=== PATIENT | male | born 1955 | race Caucasian/White ===

== ENCOUNTER 2018-08-24 10:17 | Inpatient (IN) ==
--- NOTE | 2018-05-20 10:35 | Anesthesiology Consultation ---
Date of Service May 20, 2018 Assessment & Plan (1) Encounter for pre-operative examination: Chart Review Chart Review: Patient seen in Pre Admission Testing Patients last HgBA1C was too high. Will need an updated one that has improved before we can consider proceeding per Dr. Holman. Consults Requested medical (Dr. Storm (06/14)) Saw PCP on 06/14/18 and the note states "He is medically cleared for fusion surgery by Dr. Gay this May,." Per conversation with Dr. Holman and Dr. Ribera, they would like patient to have cardiac clearance and stress test as well as repeat HgbA1C before they will clear patient to proceed with surgery. Because patients diabetes is uncontrolle d, they would like him to be better controlled as well. Teaching & Discussion Pre-Anesthesia Teaching/Discussion Notes: Instructed NPO after midnight before surgery, except medications with 15 cc of water. Medication instructions provided according to the PAT guidelines. History Surgery Operation Date: 06/17/18 11:55 Proposed Procedures p L1-L2 Decompression and Fusion - Serge Gay DO Height/Weight Height: 5 ft 7 in Weight: 140.8 kg Allergies Allergy/AdvReac Type Severity Reaction Status Date / Time No Known Allergies Allergy Verified 05/11/18 16:10 Medications Home Medications Medication Instructions Recorded Confirmed Last Taken budesonide-formoterol [Symbicort] 2 puff INHALATION Q12H PRN 05/11/18 05/11/18 Unknown diclofenac sodium 75 mg PO BID 05/11/18 05/11/18 Unknown empagliflozin [Jardiance] 25 mg PO QAM 05/11/18 05/11/18 Unknown furosemide 40 mg PO QAM 05/11/18 05/11/18 Unknown glimepiride 2 mg PO QAM 05/11/18 05/11/18 Unknown losartan 50 mg PO QAM 05/11/18 05/11/18 Unknown metformin 1,000 mg PO BID 05/11/18 05/11/18 Unknown potassium chloride 10 meq PO BID 05/11/18 05/11/18 Unknown semaglutide [Ozempic] 0.5 mg SUBCUT WK 05/20/18 05/20/18 Unknown Past Medical History Medical History Chronic back pain TO BOTH LEGS Diabetes mellitus, type 2 HTN (hypertension) 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 LEFT EYE DROOP WITH FATIGUE Morbid obesity Osteoarthritis SOB (shortness of breath) on exertion Sleep apnea CPAP Past Family History Family History Mother Family history of diabetes mellitus Past Surgical History Surgical History Fusion of spine LUMBAR History of arthroscopy LEFT KNEE History of cardiac cath 2012 NO STENTS-"DONE TO BE SURE HEART WAS OK" History of colonoscopy History of ear surgery RIGHT EAR DRUM REPAIR History of herniorrhaphy Umbilical Past Anesthesia History No Hx of Anesthesia Complications and No Family Hx of Anesthesia Complications History of PONV No Motion Sickness Screening History of Motion Sickness: No Social History Smoking Status: Former smoker tobacco type: cigarettes and cigars Smoking End Date: QUIT 30 YRS AGO Hx Alcohol Use: Yes Alcohol type: beer alcohol intake frequency: holidays/special occasions only Hx Substance Use: No Exercise / Class Metabolic Activity III < 4 Walking/Shop/Light housework (Limited due to back pain and REID. Able to slowly climb FOS. Denies CP.) Review of Systems Patient denies chest pain, reflux, cough, wheezing (only when sick), palpitations. +SOB/REID +Joint Pain (Back, Knees) Physical Exam Vital Signs BP: 130/74 P: 83 R: 18 T: 98.6 SPO2: 96% on RA ENMT Mouth: + dentures (upper) Thyromental Distance: > or= 3.5 Finger Breadths (4) Mallampati Class: II Neck + short neck and + thick neck; neck extension not limited Respiratory normal respiratory effort Auscultation: lungs clear to auscultation bilaterally Cardiovascular Rate/Rhythm: regular rate and regular rhythm Heart Sounds: no murmur Vessels: no carotid bruit Psychiatric Orientation: alert and oriented x 3 Testing Chest X-Ray Date: 05/20/18 Findings: + NAD FINDINGS: The heart is borderline enlarged. There is no failure. There is no lobar consolidation. There are no pleural effusions. Degenerative changes are present within the spine. There is bridging calcification of the anterior moshe gitudinal ligament. IMPRESSION: No active disease in the chest. Cardiac Catheterization Date: 08/19/12 Findings: + normal Intervention: + none The coronary arteries are angiographically normal. EF 60%. Left ventricular filling pressure is moderately elevated. Right heart pressures are mildly elevated. Mild pulmonary edema. Mild pulmonary hypertension is present. No significant valvular disease. Search for a non-cardiac source of shortness of breath. Laboratory Results 05/20/18 11:02 05/20/18 11:02 Blood Type B Positive 05/20/18 11:02 Antibody Screen NEGATIVE 05/20/18 11:02 PT 9.6 Seconds (9.0-12.0) 05/20/18 11:02 INR 0.9 (0.9-1.1) 05/20/18 11:02 APTT 25.5 Seconds (21.0-31.0) 05/20/18 11:02 Urine Color Yellow 05/20/18 11:02 Urine Appearance Clear (Clear) 05/20/18 11:02 Urine pH 7.0 (4.5-7.5) 05/20/18 11:02 Ur Specific [place] 1.038 (1.000-1.030) H 05/20/18 11:02 Urine Protein Negative (Negative) 05/20/18 11:02 Urine Glucose (UA) 3+ (Negative) H 05/20/18 11:02 Urine Ketones Negative (Negative) 05/20/18 11:02 Urine Nitrite Negative (Negative) 05/20/18 11:02 Ur Leukocyte Esterase Negative (Negative) 05/20/18 11:02 HgBA1C 11/23/17 - 9.5%
--- NOTE | 2018-05-20 10:58 | PAT Medication Instructions ---
Medication Instructions Date of Service May 20, 2018 Home Medications budesonide-formoterol [Symbicort] 2 puff INHALATION Q12H PRN diclofenac sodium 75 mg PO BID empagliflozin [Jardiance] 25 mg PO QAM furosemide 40 mg PO QAM glimepiride 2 mg PO QAM losartan 50 mg PO QAM metformin 1,000 mg PO BID potassium chloride 10 meq PO BID semaglutide [Ozempic] 0.5 mg SUBCUT WK Continue as directed semaglutide [Ozempic] 0.5 mg SUBCUT WK ASK your surgeon for instructions diclofenac sodium 75 mg PO BID DO NOT take the morning of surgery empagliflozin [Jardiance] 25 mg PO QAM furosemide 40 mg PO QAM glimepiride 2 mg PO QAM losartan 50 mg PO QAM metformin 1,000 mg PO BID potassium chloride 10 meq PO BID Take morning of surgery NOTHING TO EAT OR DRINK AFTER MIDNIGHT: budesonide-formoterol [Symbicort] 2 puff INHALATION Q12H NEEDED Take evening before surgery budesonide-formoterol [Symbicort] 2 puff INHALATION Q12H NEEDED metformin 1,000 mg PO BID potassium chloride 10 meq PO BID Other Notes If you have any questions please call us at [phone] or [phone] or [phone] or [phone]
--- NOTE | 2018-05-20 11:28 | XRay Report ---
XR chest Pre-admission PA/Lat CLINICAL HISTORY: Preoperative chest COMPARISON STUDY: No previous studies for comparison. FINDINGS: The heart is borderline enlarged. There is no failure. There is no lobar consolidation. The re are no pleural effusions. Degenerative changes are present within the spine. There is bridging perri cification of the anterior longitudinal ligament.[ IMPRESSION: No active disease in the chest. Electronically signed by: Jaswinder Richard M.D. 05/20/2018 11:27 AM
[2018-05-20 12:01] LABS: Appearance Urine Clear (Clear); Bilirubin Urine Negative (Negative); Blood Urine Negative (Negative); Color Urine Yellow; Glucose Urine UA 3+ (Negative); Ketones Urine Negative (Negative); Leukocyte Esterase Urine Negative (Negative); Nitrite Urine Negative (Negative); Protein Urine Negative (Negative); Specific Gravity Urine 1.038 (1.000-1.030); Urobilinogen Urine Negative (Negative)
[2018-05-20 12:11] LABS: INR 0.9 (0.9-1.1); Partial Thromboplastin Time 25.5 Seconds (21.0-31.0); Prothrombin Time 9.6 Seconds (9.0-12.0)
[2018-05-20 12:18] LABS: BUN Creatinine Ratio 18.5 (10-20); Creatinine Clr Calc Pharmacy 98.1 ml/min; Est GFR (African American) 86.8; Est GFR (Non-African American) 74.8; Potassium 3.9 mmol/L (3.5-5.1)
[2018-05-20 13:22] LABS: Hematocrit (blood only) 48.9 % (42-52); Hemoglobin 16.6 g/dL (14.0-18.0); Mean Corpuscular Hgb Conc 33.9 g/dL (32-36); Mean Corpuscular Volume 89.7 fL (80-100); RDW Coefficient of Variation 12.9 % (11.5-14.5); RDW Standard Deviation 41.9 fL (36.4-46.3); Red Blood Count 5.45 M/uL (4.7-6.1)
[2018-05-20 13:23] LABS: Basophils # (auto) 0.08 K/uL (0-0.2); Basophils % (auto) 0.9 %; Eosinophils # (auto) 0.27 K/uL (0-0.5); Eosinophils % (auto) 2.9 %; Immature Granulocytes # (auto) 0.05 K/uL (0.00-0.02); Immature Granulocytes % (auto) 0.5 %; Lymphocytes # (auto) 2.54 K/uL (1.2-3.4); Lymphocytes % (auto) 27.3 %; Monocytes # (auto) 0.56 K/uL (0.11-0.59); Neutrophils % (auto) 62.4 %; RBC Morphology Unremarkable
--- NOTE | 2018-08-22 09:22 | Anesthesiology Consultation ---
Date of Service August 22, 2018 Assessment & Plan Chart Review Chart Review: Acceptable Risk for Surgery and Patient NOT seen in Pre Admission Testing Consults Requested none ASA ASA3 Proposed Anesthesia Anesthesia Type: General Risk / Benefits Reviewed With: PT / POA / Parent / Guardian, Accepts Plan and Informed Consent Obtained NPO Date Last Intake of Fluids: 08/23/18 Time Last Intake of Fluids: 21:00 Date Last Intake of Solids: 08/23/18 Time Last Intake of Solids: 21:00 History Surgery Operation Date: 06/17/18 11:55 Proposed Procedures p L1-L2 Decompression and Fusion - Serge Gay DO Operation Date: 08/24/18 12:25 Proposed Procedures p L1-L2 Decomrpession and Fusion - Serge Gay DO Height/Weight Height: 1.7 m Weight: 136.078 kg Allergies Allergy/AdvReac Type Severity Reaction Status Date / Time No Known Allergies Allergy Verified 08/24/18 10:40 Medications Home Medications Medication Instructions Recorded Confirmed Last Taken empagliflozin [Jardiance] 25 mg PO QAM 05/11/18 08/24/18 08/21/18 08:00 furosemide 40 mg PO QAM 05/11/18 08/24/18 08/21/18 08:00 glimepiride 2 mg PO QAM 05/11/18 08/24/18 08/21/18 08:00 losartan 50 mg PO QAM 05/11/18 08/24/18 08/21/18 08:00 metformin 1,000 mg PO BID 05/11/18 08/24/18 08/21/18 19:00 potassium chloride 10 meq PO BID 05/11/18 08/24/18 08/21/18 19:00 semaglutide [Ozempic] 0.5 mg SUBCUT WK 05/20/18 08/24/18 08/16/18 Active Medications Generic Name Dose Route Start Last Admin Trade Name Freq PRN Reason Stop Dose Admin Acetaminophen 1,000 mg 08/24/18 06:00 08/24/18 11:00 Tylenol PO 08/24/18 18:00 1,000 mg PREOP DIANE Administration Celecoxib 200 mg 08/24/18 06:00 08/24/18 11:01 Celebrex PO 08/24/18 18:00 200 mg PREOP DIANE Administration Gabapentin 600 mg 08/24/18 06:00 08/24/18 11:00 Neurontin PO 08/24/18 18:00 600 mg PREOP DIANE Administration Lactated Ringer's 1,000 mls @ 15 mls/hr 08/24/18 06:00 08/24/18 11:01 Lr IV 08/25/18 05:59 15 mls/hr .Q24H DIANE Administration Past Medical History Medical History Chronic back pain TO BOTH LEGS Diabetes mellitus, type 2 HTN (hypertension) 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 LEFT EYE DROOP WITH FATIGUE Morbid obesity Osteoarthritis SOB (shortness of breath) on exertion Sleep apnea CPAP Denies having any CP, SOB, GERD symptoms, n/v Past Family History Family History Mother Family history of diabetes mellitus Past Surgical History Surgical History History of cardiac cath 07/18/18 AT [facility] NO STENTS. Fusion of spine LUMBAR History of arthroscopy LEFT KNEE History of cardiac cath 2012 NO STENTS-"DONE TO BE SURE HEART WAS OK" History of colonoscopy History of ear surgery RIGHT EAR DRUM REPAIR History of herniorrhaphy Umbilical Past Anesthesia History No Hx of Anesthesia Complications and No Family Hx of Anesthesia Complications History of PONV No Motion Sickness Screening History of Motion Sickness: No Social History Smoking Status: Former smoker tobacco type: cigarettes and cigars Smoking End Date: QUIT 30 YRS AGO Hx Alcohol Use: Yes Alcohol type: beer alcohol intake frequency: holidays/special occasions only Hx Substance Use: No substance use type: does not use Exercise / Class Metabolic Activity III < 4 Walking/Shop/Light housework (Limited now due to BP. Active prior to this.) Physical Exam Vital Signs Last Vital Signs Temp 36.8 C 08/24/18 11:02 Pulse 81 08/24/18 11:02 Resp 18 08/24/18 11:02 BP 158/74 H 08/24/18 11:02 Pulse Ox 95 08/24/18 11:02 ENMT Mouth: + dental restorations (Upper partial); no TMJ abnormality and no TMJ clicking Thyromental Distance: < 3.5 Finger Breadths Mallampati Class: II Mouth / Teeth: 1. Missing Neck + short neck and + thick neck; neck extension not limited Cardiovascular Rate/Rhythm: regular rate and regular rhythm Musculoskeletal Spine: normal cervical ROM and no pain with cervical ROM Psychiatric Orientation: alert and oriented x 3 Testing Electrocardiogram Date: 06/17/18 Findings: + NSR @ (90 BPM), + MD (anterior infarct) and + pertinent finding (doublet PVC) Chest X-Ray Date: 05/20/18 Findings: + NAD FINDINGS: The heart is borderline enlarged. There is no failure. There is no lobar consolidation. There are no pleural effusions. Degenerative changes are present within the spine. There is bridging calcification of the anterior longitudinal ligament. IMPRESSION: No active disease in the chest. Stress Test Date: 06/20/18 Type: nuclear (Lexiscan) Findings: + WNL Resting EF: 55% Resting LV Function: normal Cardiac Catheterization Date: 07/18/18 Laboratory Results 08/24/18 10:49 05/20/18 11:02 Blood Type B Positive 05/20/18 11:02 Antibody Screen NEGATIVE 05/20/18 11:02 PT 9.6 Seconds (9.0-12.0) 05/20/18 11:02 INR 0.9 (0.9-1.1) 05/20/18 11:02 APTT 25.5 Seconds (21.0-31.0) 05/20/18 11:02 Urine Color Yellow 05/20/18 11:02 Urine Appearance Clear (Clear) 05/20/18 11:02 Urine pH 7.0 (4.5-7.5) 05/20/18 11:02 Ur Specific [place] 1.038 (1.000-1.030) H 05/20/18 11:02 Urine Protein Negative (Negative) 05/20/18 11:02 Urine Glucose (UA) 3+ (Negative) H 05/20/18 11:02 Urine Ketones Negative (Negative) 05/20/18 11:02 Urine Nitrite Negative (Negative) 05/20/18 11:02 Ur Leukocyte Esterase Negative (Negative) 05/20/18 11:02 08/24/18 10:41 POC Glucose 215 H
[~2018-08-24 10:17] MED LIST: ACETAMINOPHEN 500 MG TAB PO SCH; CEFAZOLIN 3000MG 65 ML IV SCH; CeleBREX 200 MG CAP PO SCH; GABAPENTIN 300 MG x 2 PO SCH; LR 15ML/HR IV SCH
[2018-08-24] MEDS ORDERED: ePHEDrine sulfate 50 MG/ML AMP IV PRN (10:34)
[2018-08-24] MEDS ORDERED: ATROPINE SULFATE 0.1 MG/ML 10ML SYR IV PRN (10:34)
[2018-08-24] MEDS ORDERED: fentaNYL citrate 100 MCG/2 ML VIAL IV PRN (10:34)
[2018-08-24] MEDS ORDERED: ONDANSETRON INJ 2 MG/ML 2 ML VIAL IV PRN ×2 (10:34→15:36)
[2018-08-24] MEDS ORDERED: PROMETHAZINE HCL 12.5 MG in SODIUM CHLORIDE 0.9% 50 ML IV PRN ×2 (10:34→15:36)
[2018-08-24] MEDS ORDERED: PHENYLEPHRINE 100MCG/ML 5ML SYR IV PRN (10:34)
[2018-08-24] MEDS ORDERED: HYDROmorphone INJ 1 MG/ML SYRINGE IV PRN (10:34)
[2018-08-24 11:01] LABS: Basophils # (auto) 0.05 K/uL (0-0.2); Basophils % (auto) 0.7 %; Eosinophils # (auto) 0.16 K/uL (0-0.5); Eosinophils % (auto) 2.3 %; Hematocrit (blood only) 46.2 % (42-52); Hemoglobin 16.2 g/dL (14.0-18.0); Immature Granulocytes % (auto) 1.4 %; Lymphocytes # (auto) 2.17 K/uL (1.2-3.4); Lymphocytes % (auto) 30.9 %; Mean Corpuscular Volume 90.4 fL (80-100); Mean Platelet Volume 10.5 fL (7.4-10.4); Monocytes # (auto) 0.46 K/uL (0.11-0.59); Monocytes % (auto) 6.5 %; Neutrophils # (auto) 4.09 K/uL (1.4-6.5); Neutrophils % (auto) 58.2 %; Platelet Count 153 K/uL (130-400); RDW Coefficient of Variation 13.1 % (11.5-14.5); Red Blood Count 5.11 M/uL (4.7-6.1); White Blood Count 7.03 K/uL (4.8-10.8)
[2018-08-24 11:15] LABS: Mean Corpuscular Hgb Conc 35.1 g/dL (32-36)
--- NOTE | 2018-08-24 11:56 | History & Physical Bridge Note ---
Date of Service August 24, 2018 History & Physical Bridge Note I have examined the patient, reviewed the History & Physical and in the interval since the performance of the History & Physical I have noted the following changes of clinical significance: no changes noted
--- NOTE | 2018-08-24 11:59 | History & Physical Report ---
Date of Service August 24, 2018 Assessment & Plan (1) Spinal stenosis, lumbar region with neurogenic claudication: Decompression and fusion L1 2 Present on Admission?: Yes History of Present Illness Chief Complaint: Back and leg pain Primary Care Provider: Regan Storm Chronic persistent back and leg pain after failing extensive course of nonoperative care is here for surgical intervention. Allergies Allergy/AdvReac Type Severity Reaction Status Date / Time No Known Allergies Allergy Verified 08/24/18 10:40 Home Medications Home Medications Medication Instructions Recorded Confirmed Type empagliflozin [Jardiance] 25 mg PO QAM 05/11/18 08/24/18 History furosemide 40 mg PO QAM 05/11/18 08/24/18 History glimepiride 2 mg PO QAM 05/11/18 08/24/18 History losartan 50 mg PO QAM 05/11/18 08/24/18 History metformin 1,000 mg PO BID 05/11/18 08/24/18 History potassium chloride 10 meq PO BID 05/11/18 08/24/18 History semaglutide [Ozempic] 0.5 mg SUBCUT WK 05/20/18 08/24/18 History Past Med/Surg History Medical History Chronic back pain TO BOTH LEGS Diabetes mellitus, type 2 HTN (hypertension) 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 LEFT EYE DROOP WITH FATIGUE Morbid obesity Osteoarthritis SOB (shortness of breath) on exertion Sleep apnea CPAP Surgical History History of cardiac cath 07/18/18 AT [facility] NO STENTS. Fusion of spine LUMBAR History of arthroscopy LEFT KNEE History of cardiac cath 2012 NO STENTS-"DONE TO BE SURE HEART WAS OK" History of colonoscopy History of ear surgery RIGHT EAR DRUM REPAIR History of herniorrhaphy Umbilical Family History Mother Family history of diabetes mellitus Social History Preferred Language: Pashto Communication Ability: Effective Shell Plater Required: No Beliefs That Will Affect Care: None Current Living Situation: Spouse Other Information That Helps Us Care for You: No Feels Safe at Home: Yes Safety Concerns: Feels Safe At This Time Smoking Status: Former smoker Hx Alcohol Use: Yes Hx Substance Use: No Physical Exam Vital Signs (Past 24 Hours): Last Vital Signs Temp 36.8 C 08/24/18 11:02 Pulse 81 08/24/18 11:02 Resp 18 08/24/18 11:02 BP 158/74 H 08/24/18 11:02 Pulse Ox 95 08/24/18 11:02 Results & Data Medications Administered Acetaminophen (Tylenol) 1,000 mg PO PREOP DIANE Stop: 08/24/18 18:00 Last Admin: 08/24/18 11:00 Dose: 1,000 mg Documented by: [id number] Celecoxib (Celebrex) 200 mg PO PREOP DIANE Stop: 08/24/18 18:00 Last Admin: 08/24/18 11:01 Dose: 200 mg Documented by: [id number] Gabapentin (Neurontin) 600 mg PO PREOP DIANE Stop: 08/24/18 18:00 Last Admin: 08/24/18 11:00 Dose: 600 mg Documented by: [id number] Lactated Ringer's (Lr) 1,000 mls @ 15 mls/hr IV .Q24H DIANE Stop: 08/25/18 05:59 Last Admin: 08/24/18 11:01 Dose: 15 mls/hr Documented by: [id number]
[2018-08-24] MEDS ORDERED: fentaNYL citrate 100 MCG/2 ML VIAL ONE ×6 (12:16→13:28)
[2018-08-24] MEDS ORDERED: MIDAZOLAM HCL 1 MG/ML 2ML VIAL ONE (12:16)
[2018-08-24] MEDS ORDERED: LIDOCAINE HCL 2% 2 ML VIAL/AMP(20MG/ML) INFIL ONE (12:17)
[2018-08-24] MEDS ORDERED: GLYCOPYRROLATE 0.2 MG/ML VIAL ONE (12:17)
[2018-08-24] MEDS ORDERED: NEOSTIGMINE METHYLSULFATE 1 MG/ML 10ML VIAL ONE (12:17)
[2018-08-24] MEDS ORDERED: ROCURONIUM BROMIDE 10 MG/ML 5 ML VIAL ONE (12:17)
[2018-08-24] MEDS ORDERED: ONDANSETRON INJ 2 MG/ML 2 ML VIAL ONE ×2 (12:17→13:35)
[2018-08-24] MEDS ORDERED: DEXAMETHASONE SOD INJ 4 MG/ML VIAL ONE (12:17)
[2018-08-24] MEDS ORDERED: PROPOFOL IV EMULSION 10 MG/ML 20 ML VIAL IV ONE ×2 (12:17→13:00)
[2018-08-24] MEDS ORDERED: METOCLOPRAMIDE HCL INJ 5 MG/ML 2 ML VIAL ONE (12:17)
[2018-08-24] MEDS ORDERED: HYDROmorphone INJ 2 MG/ML SYR/VIAL ONE (12:18)
[2018-08-24] MEDS ORDERED: BACITRACIN INJ 50,000 UNIT VIAL ONE (12:19)
[2018-08-24] MEDS ORDERED: BUPIVACAINE/EPINEPHRINE 0.5% MPF 1:200,000 30 ML VIAL ONE (12:19)
[2018-08-24] MEDS ORDERED: FLOSEAL HEMOSTATIC MATRIX 10ML TOP ONE ×2 (12:54→14:02)
--- NOTE | 2018-08-24 14:01 | Operative Report ---
Post Operative Report Pre & Post Diagnosis Operation Date: 06/17/18 11:55 <No data on this case meets the specified criteria> Operation Date: 08/24/18 12:25 Pre-Op Diagnosis: Spinal Stenosis L1-L2 Post-Op Diagnosis: Spinal Stenosis L1-L2 Procedure Operation Date: 06/17/18 11:55 <No data on this case meets the specified criteria> Operation Date: 08/24/18 12:25 Actual Procedures #1 lumbar decompression bilateral medial facetectomies foraminotomies L1-2. #2 posterior spinal fusion L1-2. #3 patient posterior instrumentation L1-2. #4 interbody fusion L1-2. #5 placement of peek cage 9 x 26 mm L1-2. #6 placement of local autograft in the posterior lateral gutters. #7 placement Feese collagen sponge bone mass graft in the posterior gutters and ostial amp in the interbody space. Surgeon Serge Gay, Usability Strategist Toyin Esqueda Estimated Blood Loss 500 Findings Consistent with Post-Op Diagnosis Specimens None Description of Procedure Patient was met with preoperatively case discussed all questions addressed. After informed consent obtained patient was taken to the operative suite unde rwent intubation and placed in a prone position the Giovani table on top of the Matthew frame. All bony prominences well-padded eyes inspected to ensure no external rupture placed upon them. Lumbar spine was then prepped and draped in normal sterile fashion. Sharp dissection with the assistance of Bovie cautery was performed down to and exposing the lamina and transverse processes of L1-2. From a caudal cephalad fashion complete laminectomy of L1 was performed including bilateral medial facetectomies and foraminotomies addressing severe stenosis. Pedicle screws in place and L1 and L2 bilaterally with assistance of fluoroscopy and appropriate size osvaldo placed. By way of a transforaminal approach on the left complete discectomy of L1-[address] coated to subcortical bleeding bone and a 9 x 26 mm peek cage filled with ostium bone graft tapped in position. Rods were then locked in final position. The transverse processes of L1 and L2 bur to subcortical bleeding bone. Infuse collagen sponge mass graft local autograft placed in the posterior gutters. 15 round drain inserted. Incision was then closed with 1 Vicryl in the fascia 2-0 Vicryl subtenons in 4-0 Monocryl for final skin closure. Steri-Strip sterile dressings placed. Patient will continue to PACU stable disc. Please note Toyin Esqueda present at the entire procedure involved in patient positioning complex portions of the surgery and final skin closure. I attest to the content of the Intraoperative Record and any orders documented therein. Any exceptions are noted below.
[2018-08-24] MEDS ORDERED: LABETALOL HCL IV 5 MG/ML 20ML IV ONE (14:04)
--- NOTE | 2018-08-24 14:13 | Fluoroscopy Report ---
LUMBAR SPINE, INTRAOPERATIVE FLUOROSCOPY HISTORY: L1-L2 decompression and fusion. FLUOROSCOPY TIME: 13 seconds. FINDINGS: Intraoperative fluoroscopy was provided for the lumbar spine. 2 fluoroscopic spot images we re obtained. Posterior decompression and fusion at L1-L2 with pedicle screws and rods. The hardware a ppears intact. IMPRESSION: Fluoroscopy provided for a L1-L2 posterior decompression and fusion. Electronically signed by: Migel Renae M.D. 08/24/2018 2:12 PM
--- NOTE | 2018-08-24 15:14 | Anesthesiology Progress Note ---
Date of Service August 24, 2018 Anesthesia Post Procedure Vital Signs Vital Signs: Temp Pulse Pulse Resp BP Pulse Ox 08/24/18 15:00 36.6 C 80 16 157/77 H 95 08/24/18 14:50 79 16 155/84 H 95 08/24/18 14:40 78 16 147/71 H 95 08/24/18 14:30 78 16 163/87 H 97 08/24/18 14:20 37.2 C 78 16 164/88 H 97 08/24/18 11:02 36.8 C 81 18 158/74 H 95 Notes Mental Status: alert / awake / arousable and participated in evaluation Patient Amnestic to Procedure: Yes Nausea / Vomiting: adequately controlled Pain: adequately controlled Airway Patency, RR, SpO2: stable & adequate BP & HR: stable & adequate Hydration State: stable & adequate Anesthetic Complications: no major complications apparent
[2018-08-24] MEDS ORDERED: ALUMINUM/MAGNESIUM SUSP 30 ML UDC PO PRN (15:36)
[2018-08-24] MEDS ORDERED: METOCLOPRAMIDE HCL INJ 5 MG/ML 2 ML VIAL IV PRN (15:36)
[2018-08-24] MEDS ORDERED: ACETAMINOPHEN 500 MG TAB PO PRN (15:36)
[2018-08-24] MEDS ORDERED: MAGNESIUM HYDROXIDE SUSP 30 ML UDC PO PRN (15:36)
[2018-08-24] MEDS ORDERED: ACETAMINOPHEN 1,000 MG/100 ML VIAL IV PRN (15:36)
[2018-08-24] MEDS ORDERED: LORazepam 0.5 MG/1 ML VIAL IV PRN (15:36)
[2018-08-24] MEDS ORDERED: FAMOTIDINE 20 MG TAB PO PRN (15:36)
[2018-08-24] MEDS ORDERED: SOD PHOSPHATE/SOD BIPHOSPHATE ENEMA 132 ML BTL PR PRN (15:36)
[2018-08-24] MEDS ORDERED: ONDANSETRON 4 MG TAB PO PRN (15:36)
[2018-08-24] MEDS ORDERED: DO NOT ADMINISTER FLU VACCINE PRN (15:36)
[2018-08-24] MEDS ORDERED: LORazepam 0.5 MG TAB PO PRN (15:36)
[2018-08-24] MEDS ORDERED: TRAMADOL HCL 50 MG TABLET PO PRN (15:36)
[2018-08-24] MEDS ORDERED: HYDROmorphone INJ 0.5 MG/0.5 ML SYR IV PRN (15:36)
[2018-08-24] MEDS ORDERED: DO NOT ADMINISTER PNEUMOCOCCAL VACCINE PRN (15:36)
[2018-08-24] MEDS ORDERED: BISACODYL 10 MG SUPP PR PRN (15:36)
[2018-08-24] MEDS ORDERED: INFLUENZA ADMINISTRATION CHARGE ONE (16:30)
[2018-08-24] MEDS ORDERED: PNEUMOCOCCAL POLYSACCHARIDES 25 MCG/0.5 ML VIAL/SYR IM ONE (16:30)
[2018-08-24] MEDS ORDERED: INFLUENZA VIRUS QUAD VACCINE 0.5 ML SYR IM ONE (16:30)
[2018-08-24] MEDS ORDERED: PNEUMOCOCCAL ADMINISTRATION CHARGE ONE (16:30)
[2018-08-24] MEDS ORDERED: GLUCOSE 10 TABS/TUBE PO PRN (16:42)
[2018-08-24] MEDS ORDERED: CARBOHYDRATES FOR HYPOGLYCEMIA PO PRN (16:42)
[2018-08-24] MEDS ORDERED: DEXTROSE 50% 50 ML SYRINGE IV PRN (16:42)
[2018-08-24] MEDS ORDERED: GLUCAGON FOR INJ 1 MG VIAL SQ PRN (16:42)
[2018-08-24] MEDS ORDERED: GLUCOSE 40% GEL 15 GM TUBE PO PRN (16:42)
[2018-08-24] MEDS ORDERED: INSULIN HUMAN NPH SC ONE ×3 (16:46→22:00)
--- NOTE | 2018-08-24 17:12 | Hospitalist Consultation ---
Date of Consultation August 24, 2018 Assessment & Plan (1) Spinal stenosis, lumbar region with neurogenic claudication: - POD#0 L1-L2 decompression fusion by Dr. Gay - activity and wound care orders as per ortho - pain control with bowel regimen - PT/OT - monitor H/H for acute blood loss anemia and transfuse blood products PRN - EBL 500 cc (2) DM type 2 (diabetes mellitus, type 2): -Unknown Hgb A1c, will check with morning labs -Hold home medications including metformin, glyburide, Jardiance, Ozempic and utilize NPH and NovoLog per protocol -Noted patient received Decadron 12 mg IV intraoperatively (3) Elevated blood pressure, situational: -BP is elevated postoperatively, likely situational -Most recent BP reading 139/80 -Patient is on losartan however reports this is for renal protection secondary to diabetes; does not carry a diagnosis of hypertension -Continue losartan, making adjustments as needed (4) DELMY on CPAP: -CPAP as per home settings (5) DVT prophylaxis: -Teds/SCDs as per spine orthopedics -Noted patient with history of postoperative DVT in the past, recommend early ambulation if possible and consideration for pharmacologic prophylaxis Thank you for this consultation. We will follow the patient with you during their hospital stay. You can [facility] a [facility] via pager @ [phone]. Supervising Physician Co-Signing Physician Notes Patient is a 62-year-old male who was seen and examined postoperatively. Patient underwent L1-L2 decompression fusion by Dr. Gay. Patient is doing well postop. Denies any chest pain, shortness of breath, dizziness. On exam patient is obese, no apparent distress, lungs are clear to auscultation, S1-S2, no murmur, abdomen is soft nontender, surgical site in dressing, was able to move all extremities. Patient was noted to have high blood sugar levels. Received Decadron intraoperatively. Will hold home regimen and start him on insulin therapy. Monitor blood glucose levels. Given history of postoperative deep vein thrombosis consider pharmacologic DVT prophylaxis as able. I personally reviewed the record. Patient is interviewed and examined at bedside. Patient's care is coordinated with Pallavi Grace COMPUTER PROGRAMMER. Please refer to the documentation above for details of patient's presentation and for discussion of other issues. History of Present Illness Reason for Consultation: Postop medical management Requesting Physician: Dr. Gay Attending Physician: Dr. Rodriguez History of Present Illness 62-year-old male who is status post decompression fusion L1-L2 by Dr. Gay today. Postoperatively, the patient reports he is doing well. He reports his pain is well controlled. He reports numbness and tingling that he had in his feet prior to his surgery has now resolved. He denies chest pain and shortness of breath. No lightheadedness or dizziness. He denies abdominal pain or nausea. He has not voided since surgery. Allergies Allergy/AdvReac Type Severity Reaction Status Date / Time No Known Allergies Allergy Verified 08/24/18 10:40 Home Medications Home Medications Medication Instructions Recorded Confirmed Type empagliflozin [Jardiance] 25 mg PO QAM 05/11/18 08/24/18 History furosemide 40 mg PO QAM 05/11/18 08/24/18 History glimepiride 2 mg PO QAM 05/11/18 08/24/18 History losartan 50 mg PO QAM 05/11/18 08/24/18 History metformin 1,000 mg PO BID 05/11/18 08/24/18 History potassium chloride 10 meq PO BID 05/11/18 08/24/18 History semaglutide [Ozempic] 0.5 mg SUBCUT WK 05/20/18 08/24/18 History Patient History Medical History DVT (deep venous thrombosis) (Chronic) Postoperative DELMY on CPAP (Chronic) DM type 2 (diabetes mellitus, type 2) (Chronic) Spinal stenosis, lumbar region with neurogenic claudication (Chronic) HTN (hypertension) (Chronic) Hx of Gabriel's palsy (Chronic) LEFT SIDE FACE 2007?-RESIDUAL LEFT EYE DROOP WITH FATIGUE Osteoarthritis (Chronic) Surgical History History of ear surgery (Chronic) S/P left knee arthroscopy (Chronic) H/O hernia repair (Chronic) Previous back surgery (Chronic) History of cardiac cath (Chronic) 2012 NO STENTS-"DONE TO BE SURE HEART WAS OK" Family History Mother Pancreatic cancer Father Heart disease [place] in his 80s Social History Preferred Language: Bulgarian Communication Ability: Effective 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 Beliefs That Will Affect Care: None Current Living Situation: Spouse Other Information That Helps Us Care for You: No Feels Safe at Home: Yes Safety Concerns: Feels Safe At This Time Smoking Status: Former smoker Hx Alcohol Use: Yes Hx Substance Use: No Review of Systems ROS per HPI, all other systems reviewed and negative Physical Exam Vital Signs (Past 24 Hours): Last Vital Signs Temp 36.7 C 08/24/18 16:20 Pulse 79 08/24/18 16:20 Resp 18 08/24/18 16:20 BP 139/80 08/24/18 16:20 Pulse Ox 97 08/24/18 16:20 Constitutional: WD/WN, vitals as above Eyes: PERRL, conjunctivae normal, anicteric sclerae ENMT: external ear and nose normal, oropharynx normal Respiratory: normal respiratory effort, lungs clear to auscultation Cardiovascular: Rate/Rhythm: regular rate and regular rhythm Vessels: normal peripheral pulses Extremities: no edema Gastrointestinal (Abdomen): Inspection/Auscultation: + abdomen distended (Obese, semifirm) and normal bowel sounds Percussion/Palpation: abdomen nontender and no hepatosplenomegaly Musculoskeletal: no cyanosis or clubbing, extremities motor strength 5/5 S/P back surgery, drain in place draining bloody drainage, pedal pushes and pulls strong bilaterally Skin: no rashes, warm and dry Neurologic: PERRL, EOMI, accommodation nl, no face palsy, no dysarthria Psychiatric: A+Ox3, euthymic affect Results & Data Laboratory Results Short CBC 08/24/18 Range/Units 10:49 WBC 7.03 (4.8-10.8) K/uL Hgb 16.2 (14.0-18.0) g/dL Hct 46.2 (42-52) % Plt Count 153 (130-400) K/uL
[2018-08-24] MEDS: KETOROLAC 30 MG/ML VIAL IV SCH ×2 (17:23→23:16)
[2018-08-24] MEDS: INSULIN ASPART 100 UNITS/ML 3 ML PEN SC SCH ×2 (18:17→21:07)
[2018-08-24] MEDS: CEFAZOLIN 2000MG 2,000 MG/15 ML SYR IV SCH (19:27)
[2018-08-24] MEDS ORDERED: POTASSIUM CHLORIDE 10 MEQ TABCR PO SCH (21:00)
[2018-08-24] MEDS: DOCUSATE SODIUM/SENNA 50/8.6MG TAB PO SCH (21:13)
[2018-08-24] MEDS ORDERED: INSULIN HUMAN NPH SC SCH (22:00)
[2018-08-24] MEDS: SODIUM CHLORIDE 0.9% 1000ML 1,000 ML IV SCH (23:15)
[2018-08-25] MEDS: SODIUM CHLORIDE 0.9% 1000ML 1,000 ML IV SCH ×2 (00:02→05:04)
[2018-08-25] MEDS: POLYETHYLENE (MIRALAX) 17 GM PACK PO SCH ×3 (05:03→18:30)
[2018-08-25] MEDS: CEFAZOLIN 2000MG 2,000 MG/15 ML SYR IV SCH (05:03)
[2018-08-25] MEDS: KETOROLAC 30 MG/ML VIAL IV SCH ×2 (05:03→12:30)
[2018-08-25 06:30] LABS: Hematocrit (blood only) 39.7 % (42-52); Hemoglobin 13.8 g/dL (14.0-18.0); Mean Corpuscular Hgb Conc 34.8 g/dL (32-36); Mean Corpuscular Volume 90.4 fL (80-100); RDW Coefficient of Variation 13.1 % (11.5-14.5); RDW Standard Deviation 43.3 fL (36.4-46.3); Red Blood Count 4.39 M/uL (4.7-6.1)
[2018-08-25 06:48] LABS: BUN Creatinine Ratio 21.4 (10-20); Calcium 7.9 mg/dl (8.5-10.1); Creatinine Clr Calc Pharmacy 116.4 ml/min; Est GFR (African American) 106.2; Est GFR (Non-African American) 91.6
[2018-08-25 06:50] LABS: Estimated Average Glucose 235 mg/dl; Hemoglobin A1C 9.8 % (4.5-5.6)
[2018-08-25 07:21] LABS: Basophils # (auto) 0.02 K/uL (0-0.2); Basophils % (auto) 0.2 %; Eosinophils # (auto) 0.01 K/uL (0-0.5); Eosinophils % (auto) 0.1 %; Immature Granulocytes % (auto) 0.8 %; Lymphocytes # (auto) 1.18 K/uL (1.2-3.4); Lymphocytes % (auto) 8.9 %; Monocytes # (auto) 0.65 K/uL (0.11-0.59); Monocytes % (auto) 4.9 %; Neutrophils # (auto) 11.24 K/uL (1.4-6.5); Neutrophils % (auto) 85.1 %
--- NOTE | 2018-08-25 07:57 | Orthopedic Progress Note ---
Date of Service August 25, 2018 Assessment & Plan (1) Spinal stenosis, lumbar region with neurogenic claudication: Initiate physical therapy today advance his bowel regimen anticipate discharge home tomorrow. Present on Admission?: Yes Subjective Back pain controlled leg symptoms markedly improved. Physical Exam Vital Signs (Past 24 Hours): Last Vital Signs Temp 36.7 C 08/25/18 07:03 Pulse 79 08/25/18 07:03 Resp 18 08/25/18 07:03 BP 128/68 08/25/18 07:03 Pulse Ox 93 08/25/18 07:03 Physical Exam: Physical exam he is good strength testing appears comfortable.
[2018-08-25] MEDS: LOSARTAN POTASSIUM 50 MG TAB PO SCH (08:28)
[2018-08-25] MEDS: INSULIN ASPART 100 UNITS/ML 3 ML PEN SC SCH ×4 (08:30→20:38)
--- NOTE | 2018-08-25 08:57 | Hospitalist Progress Note ---
Date of Service August 25, 2018 Assessment & Plan (1) Spinal stenosis, lumbar region with neurogenic claudication: POD#1 S/P L1-L2 decompression fusion by Dr. Gay had EBL 500ml - activity and wound care orders as per ortho - pain control with bowel regimen - PT/OT -incentive spirometry -monitor H&H for acute blood loss anemia, Hgb: 13.8 from 16.2 (2) DM type 2 (diabetes mellitus, type 2): Pt received Decadron 12 mg IV intraoperatively A1c: 9.8. Fasting BSG 295 this morning -continue to hold home metformin while in hospital, pt can resume ozempic out patient -resume glyburide and Jardiance -NPH and NovoLog per protocol (3) Elevated blood pressure, situational: BP was elevated postoperatively. Last night and today BPs controlled with SBPs: 120's-130's -Continue losartan, lasix (4) DELMY on CPAP: -CPAP as per home settings (5) DVT prophylaxis: -Teds/SCDs as per spine orthopedics -Noted patient with history of postoperative DVT in the past, recommend early ambulation if possible and consideration for pharmacologic prophylaxis Disposition per primary team, likely discharge tomorrow Pt was seen with Dr Morton. See addendum. Thank you for this consultation. We will follow the patient with you during their hospital stay. You [facility] a [facility] via pager @ [phone]. Supervising Physician Co-Signing Physician Notes Attending addendum The patient was seen and examined the medical floor He has been out of bed on a chair without any symptoms Started on physical therapy and been good Likely be discharged tomorrow Denies any symptoms Labs reviewed and he is hemodynamically stable Agree with assessment and plan as outlined above by Trish Morton Subjective F/U medical management DM and elevated BP Pt seen and examined in bedside chair. Reports is doing well post op and states pain controlled. Reports prior to surgery had numbness to feet which has since resolved. Eating and drinking well. Denies nausea or vomiting. Last BM yesterday prior to surgery. Urinating without difficulty. Pt states that he had discontinued all his home meds on 08/21/18 prior to surgery as he misunderstood pre-op medication directions. Denies fever/chills, LIANG, dizziness, CP, SOB, cough, sore throat, choking, abdominal pain, rashes, urinary symptoms. Physical Exam Vital Signs (Past 24 Hours): Last Vital Signs Temp 36.7 C 08/25/18 07:03 Pulse 79 08/25/18 07:03 Resp 18 08/25/18 07:03 BP 128/68 08/25/18 07:03 Pulse Ox 93 08/25/18 07:03 Physical Exam: General: no distress, obese Head: normocephalic, atraumatic Eyes: conjunctiva non-injected, anicteric ENT: normal inspection external ears, nose, mucous membranes moist Neck: supple, trachea midline, non-tender Lungs: clear, no respiratory distress, no wheezing/rhonchi/rales CV: RRR, mild pretibial edema Abd: normal BS, soft, non-tender Ext: no cyanosis, no calf tenderness, bilateral pedal pushes and pulls intact, distal pulses intact Neuro: A&O x 3, no focal deficits noted, normal affect Skin: warm, dry Results & Data Laboratory Results Short CBC 08/24/18 08/25/18 Range/Units 10:49 06:07 WBC 7.03 13.20 H (4.8-10.8) K/uL Hgb 16.2 13.8 L (14.0-18.0) g/dL Hct 46.2 39.7 L (42-52) % Plt Count 153 (130-400) K/uL BMP 08/25/18 06:07 Sodium 139 Potassium 4.0 Chloride 109 H Carbon Dioxide 23 BUN 19 H Creatinine 0.89 Glucose 295 H Calcium 7.9 L
[2018-08-25] MEDS ORDERED: FUROSEMIDE 40 MG TAB PO SCH ×3 (09:00→09:30)
[2018-08-25] MEDS ORDERED: GLIMEPIRIDE 2 MG TAB PO SCH (09:00)
[2018-08-25] MEDS: INSULIN HUMAN NPH SC SCH ×2 (09:43→20:40)
[2018-08-25] MEDS: GLIMEPIRIDE 2 MG TAB PO SCH (10:54)
[2018-08-25] MEDS: OXYCODONE HCL IR 5 MG TAB (IMMEDIATE RELEASE) PO PRN (20:31)
[2018-08-25] MEDS: DOCUSATE SODIUM/SENNA 50/8.6MG TAB PO SCH (20:35)
[2018-08-26] MEDS: POLYETHYLENE (MIRALAX) 17 GM PACK PO SCH ×3 (00:54→11:21)
[2018-08-26 06:42] LABS: Basophils # (auto) 0.03 K/uL (0-0.2); Basophils % (auto) 0.3 %; Eosinophils # (auto) 0.16 K/uL (0-0.5); Eosinophils % (auto) 1.6 %; Hematocrit (blood only) 36.7 % (42-52); Hemoglobin 12.7 g/dL (14.0-18.0); Immature Granulocytes # (auto) 0.17 K/uL (0.00-0.02); Immature Granulocytes % (auto) 1.7 %; Lymphocytes # (auto) 3.19 K/uL (1.2-3.4); Lymphocytes % (auto) 31.8 %; Mean Corpuscular Hgb Conc 34.6 g/dL (32-36); Mean Corpuscular Volume 91.8 fL (80-100); Mean Platelet Volume 11.2 fL (7.4-10.4); Monocytes # (auto) 0.69 K/uL (0.11-0.59); Monocytes % (auto) 6.9 %; Neutrophils # (auto) 5.78 K/uL (1.4-6.5); Neutrophils % (auto) 57.7 %; Platelet Count 154 K/uL (130-400); RDW Coefficient of Variation 13.7 % (11.5-14.5); RDW Standard Deviation 45.3 fL (36.4-46.3); White Blood Count 10.02 K/uL (4.8-10.8)
[2018-08-26 07:09] LABS: BUN Creatinine Ratio 29.5 (10-20); Calcium 8.1 mg/dl (8.5-10.1); Creatinine Clr Calc Pharmacy 123.4 ml/min; Est GFR (African American) 108.8; Est GFR (Non-African American) 93.8; Potassium 3.8 mmol/L (3.5-5.1)
[2018-08-26] MEDS: OXYCODONE HCL IR 5 MG TAB (IMMEDIATE RELEASE) PO PRN ×2 (07:21→11:21)
[2018-08-26] MEDS: LOSARTAN POTASSIUM 50 MG TAB PO SCH (08:10)
[2018-08-26] MEDS: GLIMEPIRIDE 2 MG TAB PO SCH (08:10)
[2018-08-26] MEDS: INSULIN ASPART 100 UNITS/ML 3 ML PEN SC SCH ×2 (08:47→12:42)
[2018-08-26] MEDS: INSULIN HUMAN NPH SC SCH (08:48)
[2018-08-26] MEDS ORDERED: FUROSEMIDE 40 MG TAB PO SCH (09:00)
--- NOTE | 2018-08-26 09:51 | Hospitalist Progress Note ---
Date of Service August 26, 2018 Assessment & Plan (1) Spinal stenosis, lumbar region with neurogenic claudication: POD#2 S/P L1-L2 decompression fusion by Dr. Gay had EBL 500ml Pain moderately controlled, pt not wanting to take much pain medication - activity and wound care orders as per ortho - pain control with bowel regimen - PT/OT -incentive spirometry -monitor H&H for acute blood loss anemia. Hgb stable at 12.7 (2) DM type 2 (diabetes mellitus, type 2): Pt received Decadron 12 mg IV intraoperatively A1c: 9.8. BSG's improved over past 24 hours at 228, 112, 144, 160 -religious educator recommendations post-discharge: most likely needs insulin, however pt refuses. Is agreeable to reduced carb intake, SMBG regularly and call his provider with BG values persistently above target. -continue to hold home metformin while in hospital, pt can resume ozempic and metformin up hospital discharge -resume glyburide and Jardiance -NPH and NovoLog per protocol (3) Elevated blood pressure, situational: BP was elevated postoperatively and then controlled with SBPs: 120's- 140's. This morning BP 168/86 prior to am BP meds -Continue losartan, lasix -monitor BP (4) DELMY on CPAP: -CPAP as per home settings (5) DVT prophylaxis: -Teds/SCDs as per spine orthopedics -Pt with hx of postoperative DVT in the past, continue ambulation Disposition per primary team, plan on discharge home today Pt to follow up with PCP and close monitoring of BSGs. Pt reports has PCP appt in 2 weeks Pt was seen with Dr Morton. See addendum. Supervising Physician Co-Signing Physician Notes Attending addendum: The patient was seen and examined in medical floor in presence of the family members He is ready to get out of the hospital He denies any symptoms today On examination Hemodynamically stable Chest-decreased breath sounds both sides without any wheezing or crackles Heart S1 and S2 regular Abdomen-distended, soft Extremities-trace edema bilateral Repeat labs noted Agree with assessment and plan as outlined above by Trish Morton Subjective F/U medical management DM and elevated BP. S/P lumbar surgery. POD #2 Pt seen and examined in bedside chair. Reports is doing well. Having some back discomfort, has not wanted to take much pain medication. No further numbness to feet reported. Denies N/V. Eating and drinking well. Urinating without difficulty. +flatus. Denies BM x 2 days. Denies fever/chills, LIANG, dizziness, CP, SOB, cough, sore throat, choking, abdominal pain, rashes, urinary symptoms. Physical Exam Vital Signs (Past 24 Hours): Last Vital Signs Temp 36.6 C 08/26/18 08:07 Pulse 69 08/26/18 08:07 Resp 20 08/26/18 08:07 BP 168/86 H 08/26/18 08:07 Pulse Ox 97 08/26/18 08:07 Physical Exam: General: no distress, obese Head: normocephalic, atraumatic Eyes: conjunctiva non-injected, anicteric ENT: normal inspection external ears, nose, mucous membranes moist Neck: supple, trachea midline, Lungs: clear, no respiratory distress, no wheezing/rhonchi/rales CV: RRR, trace pretibial edema Abd: normal BS, soft, protuberant, non-tender Ext: no cyanosis, no calf tenderness, ROM extremities intact, distal pulses intact, sensation to light touch intact Back: dressing in place without discharge, DOUG drain intact with serosanguinous drainage, Neuro: A&O x 3, no focal deficits noted, normal affect Skin: warm, dry Results & Data Laboratory Results Short CBC 08/26/18 Range/Units 06:18 WBC 10.02 (4.8-10.8) K/uL Hgb 12.7 L (14.0-18.0) g/dL Hct 36.7 L (42-52) % Plt Count 154 (130-400) K/uL [facility] 08/26/18 06:18 Sodium 143 Potassium 3.8 Chloride 112 H Carbon Dioxide 24 BUN 25 H Creatinine 0.84 Glucose 187 H Calcium 8.1 L
--- NOTE | 2018-08-26 13:26 | Discharge Summary ---
Date of Service August 26, 2018 Admission HPI Per Admitting Provider Chronic persistent back and leg pain after failing extensive course of nonoperative care is here for surgical intervention. Principal Diagnosis Lumbar spinal stenosis with neurogenic claudication Discharge Data Allergies Allergy/AdvReac Type Severity Reaction Status Date / Time No Known Allergies Allergy Verified 08/24/18 10:40 Consultations 08/24/18 15:36 Consult Case Management - Discharge Planning Routine Consult Hospitalist Routine Procedures Performed Operation Date: 06/17/18 11:55 <No data on this case meets the specified criteria> Operation Date: 08/24/18 12:25 Actual Procedures p L1-L2 Decompression and Fusion with Interbody(Not Applicable) - Serge Gay DO Ordered Studies 08/24/18 11:25 FL fluoroscopy <1hr Routine FL lumbar spine 2-3V Routine Hospital Course (1) Spinal stenosis, lumbar region with neurogenic claudication: Patient underwent lumbar decompression fusion tolerated as well as taken the orthopedic floor postoperative. Postop day #1 he was up and ambulate nicely. Leg pain improved. Progressed to postop day #2. DOUG drain decreasing probably. Subsequent discharge home. Discharge orders and instructions found in the chart for further review. Total Time Total Time Spent Total Time Spent (In Minutes): Not applicable Discharge Plan Discharge Items Patient Disposition: Home - Self-Care Reason For Visit: Spinal Stenosis Discharge Diagnosis: lumbar stenosis Discharge Goals: Decrease discomfort Activity: Per 'Additional Instructions' section Non-emergency contact: Primary Care Provider Call non-emergency contact if: you have any medication questions Follow-up/Referrals: Regan Storm M.D. [Primary Care Provider] - Diet: Regular Addtl Provider Instructions: ACTIVITY RECOMMENDATIONS: SELF CARE INSTRUCTIONS AFTER THORACIC/LUMBAR FUSIONS 1. You may walk to your tolerance. It is good exercise for your legs and back. Expect some back and intermittent leg aches and pains. 2. You may perform "counter-top" level activities (make a sandwich, steven with a project, etc.). 3. No bending or lifting of more than 10 pounds or back twisting of any nature (roll like a log when turning in bed). 4. You may ride in a car for 20-30 minutes at a time. No driving until after your first visit with your doctor. 5. Frequent changes of position and restricting sitting to 30 minutes at a time will help limit the amount of back spasms and stiffness you may experience. 6. You may discontinue the use of ambulatory aids (cane, crutches, etc.) once your strength and confidence allow. 7. You may circus train supervisor the shower and let water strike your incision when you arrive home at least once daily. Do not take a tub bath, sit in a hot tub or go into a swimming pool until after your first recheck in the office. SPECIAL CARE INSTRUCTIONS: VERY IMPORTANT TO READ AND REVIEW A. Your surgical incision has been closed with a cosmetic suture under the skin that will dissolve in about 6 weeks. In 14 days, you can use a pair of clean scissors and cut the suture that is left outside of the skin at the ends of your incision. 1. The small skin tapes can be removed 7 days after surgery if they have not fallen off by that point. 2. You may keep the wound open to air as much as possible to promote healing after post-op day number 5 unless told otherwise by your doctor. 3. If you think the wound looks like it is becoming infected (redness or worsening drainage) and/or you are experiencing fever, chill or worsening back pain and muscle spasms, contact the office so that we may evaluate you as soon as possible. B. Complications are uncommon, but please contact us if you have any signs or symptoms of: 1. wound infection (fever higher than 102.5 degrees F, redness, separation of wound, drainage, or increasing pain from the incision) 2. blood clots in legs (pain, swelling, redness and warmth in legs) 3. urinary tract infection (fever higher than 102.5 degrees F, burning upon urination or increased frequency of urination) 4. nerve problems (inability to walk on your toes or heels, numbness, loss of bowel or bladder control) 5. any other symptoms that concern you C. Please call the office at if you have any concerns or questions about your operation or recovery. D. No smoking! Smoking drastically decreases the chance of a solid fusion. E. Do not take any anti-inflammatory medications (Indocin, Advil, Motrin, Aspirin, Naprosyn, etc.) as these may inhibit the chance of a solid fusion. Tylenol is okay to take for pain. MANAGING PAIN AFTER SPINAL SURGERY 1. Narcotic medication is intended for short-term use and will be provided for surgical pain. Surgical pain usually lasts for a period of 4-6 weeks. Narcotic medication includes Percocet, Vicodin, Darvocet, Tylenol #3 or Lortab. 2. Longer-term pain is more appropriately treated with non-narcotic medication such as Tylenol ES. 3. Muscle spasm is not appropriately treated with narcotics. Muscle relaxers such as Soma, Flexeril or Skelaxin can be used along with Tylenol ES. 4. Remember that we all live with some "aches and pains". This is not unusual or uncommon after an injury or as we get older. a. Back pain is expected and may include muscle spasms for 4 to 6 weeks after surgery. The pain should gradually improve. If the pain worsens for no apparent reason, please contact the office. b. Intermittent leg pain may also be experienced and should not be concerned about unless it worsens for no apparent reason. If so, please contact the office. 5. We will provide appropriate medication within the normal guidelines of their prescribed use. We will also be very cautious and aware of potential abuse and extended duration of patients' medication needs. a. Pain medications are for your comfort and to assist with sleep and rest so that the tissue can heal. They are not provided in order to return to normal activity and should not be used through the day. To do so or worsening pain at night can result from ongoing tissue damage and development of tolerance to the prescribed medicine. 6. Please allow 2-3 days to process refills. Prescriptions will not be mailed but must be picked up at the office. FOLLOW UP VISIT: Keep your scheduled follow-up appointment. Any questions, please call the office at . Prescriptions: New tramadol 50 mg Tablet 50 mg PO Q4H PRN (Reason: Pain, Moderate) Qty: 30 RF: 0 oxycodone 5 mg Tablet 5 mg PO Q4H PRN (Reason: Pain, Severe) Qty: 30 RF: 0 Continued losartan 50 mg Tablet 50 mg PO QAM RF: 0 potassium chloride 10 mEq Capsule, Extended Release 10 meq PO BID RF: 0 glimepiride 2 mg Tablet 2 mg PO QAM RF: 0 metformin 1,000 mg Tablet 1,000 mg PO BID RF: 0 furosemide 40 mg Tablet 40 mg PO Q2D RF: 0 Jardiance 25 mg Tablet 25 mg PO QAM RF: 0 Ozempic 0.25 mg or 0.5 mg(2 mg/1.5 mL) Pen Injector 0.5 mg subcut WK RF: 0 Stand-Alone Forms: [facility], Opioid Pain Management Discharge Orders: Discharge Order (Routine); Ordered 08/26/18 Ordered By: Serge Gay Admission Data Admit Date/Time: 08/24/18 14:09 Attending Provider: Serge Gay Admit Provider: Serge Gay Primary Care Provider: Regan Storm Other Providers: Quoc Rosenthal Manabendra Service: Surgical Services Other Interventions: Discharge Summary Assessment (RN) Last Done: 08/26/18 13:01
== END 2018-08-26 13:47 | disposition home or self-care (01) | DRG 454 ==
LOC: ASU 10:17 → 3E 14:09

== ENCOUNTER 2022-03-22 08:58 | Inpatient (IN) ==
[2022-03-22] MEDS ORDERED: ONDANSETRON INJ 2 MG/ML 2 ML VIAL IV STA (09:57)
[2022-03-22] MEDS ORDERED: HYDROmorphone INJ 1 MG/ML SYRINGE IV STA (09:57)
--- NOTE | 2022-03-22 09:57 | Emergency Department Note ---
Impression & Plan Lumbar back pain with radiculopathy affecting left lower extremity, Intractable low back pain, Abnormal finding on EKG ED Provider Note CHIEF COMPLAINT: "Back surgery with Dr. Gay tomorrow" HISTORY OF PRESENT ILLNESS: Patient is a 66-year-old male with past medical history significant for sleep apnea on CPAP, diabetes, hypertension, obesity who presents the emergency department at the recommendation of anesthesia/surgery for admission for preop medical clearance. Patient is scheduled for revision lumbar decompression and fusion with Dr. Gay tomorrow, 03/23. He was in last week to see anesthesia for medical clearance. He had an abnormal EKG, and anesthesia requested a cardiology clearance prior to surgery. Patient reports that his back pain has been escalating since December. He has been on multiple medications including tramadol, narcotics and gabapentin which are not working and he is no longer taking. He reports pain in his low back that radiates into the left leg and left groin. No bowel or bladder incontinence or saddle anesthesias. He has weakness in the leg secondary to pain. He currently rates his discomfort a 10/10. REVIEW OF SYSTEMS: Review of systems as per HPI. All other systems reviewed were negative. 10 systems reviewed. PMH: Electronic medical records are reviewed and summarized as above/below. See Problem List. SOCIAL HISTORY: Patient lives at home with his . PHYSICAL EXAM: Vital Signs: Reviewed Nurse's notes. CONSTITUTIONAL: Morbidly obese 66-year-old male who is awake and alert and sitting on the edge of the gurney. There is moderate discomfort with position changes. CARDIOVASCULAR: Regular rate and rhythm. Peripheral pulses easily palpable. RESPIRATORY: Breath sounds equal and clear to auscultation. ABDOMEN: Bowel sounds are present. Abdomen is soft, nontender and nondistended. INTEGUMENTARY: No lesions or rash, normal skin turgor. LYMPH: No lymphadenopathy. SPINE: Examination of the patient's back does not demonstrate any ecchymosis, abrasions or outward signs of trauma. No erythema, increased warmth or induration. He has a well-healed lumbar surgical scar. Patient has midline discomfort to palpation over the lumbar spine. There is no pain over the SI joint or the sciatic notch. He has increased pain with range of motion including rotation and flexion. EXTREMITIES: Leg lengths are symmetrical. Negative logroll bilaterally. Patellar reflex 1+ bilaterally. He has some diminished strength to left ankle dorsiflexion and plantarflexion, 4/5 on the left compared to 5/5 on the right. Positive bilateral straight leg raise testing. Calves are soft and nontender. Distal pulses are easily palpable. Diminished sensation light touch over the left lower extremity. EMERGENCY DEPARTMENT COURSE: The patient was seen and assessed as above. Old records were reviewed. Patient had initial anesthesia consult on 03/17, this was updated on 03/20, requesting cardiology clearance preoperatively. The patient was told to come to the ED today to be admitted so preoperative testing could be completed prior to surgical intervention tomorrow 03/23. He is reviewed with ED case management and consultation was placed with the [facility] service who and seen and cared for the patient on previous admission in 2018. Patient was discussed with Trish Frankel PA-C. Did also review the patient with Toyin Tejeda PA-C with Dr. aGy. She is aware. I ordered CBC with differential, CMP, coags, urinalysis and a COVID test, in addition to an EKG for preoperative medical clearance. He was medicated with Dilaudid 1 mg and Zofran 4 mg IV for his back discomfort. Platelets needed to be recollected due to clumping on the original CBC. Please refer to admitting team orders for further information. 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 Hx of colonoscopy S/P left knee arthroscopy Family History Mother Pancreatic cancer Father Heart disease [place] in his 80s Social History Smoking Status: Former smoker Second Hand Exposure: No; Hx Alcohol Use: No Hx Substance Use: No Preferred Language: Kinyarwanda Communication Ability: Effective Supervisor Blasting Required: No Beliefs That Will Affect Care: None marital status: Current Living Situation: Spouse Feels Safe at Home: Yes Assistive Devices: Cane, CPAP, Denture - Upper and Walker Allergies Allergies Allergy/AdvReac Type Severity Reaction Status Date / Time No Known Allergies Allergy Verified 08/24/18 10:40 Home Meds Home Medications Medication Instructions Recorded Confirmed empagliflozin 25 mg tablet 25 mg PO QAM 05/11/18 03/22/22 (Jardiance) furosemide 40 mg tablet 40 mg PO QAM 05/11/18 03/22/22 glimepiride 2 mg tablet 4 mg PO BID 05/11/18 03/22/22 metformin 1,000 mg tablet 1,000 mg PO BID 05/11/18 03/22/22 potassium chloride 10 mEq 10 meq PO BID 05/11/18 03/22/22 capsule,extended release semaglutide 0.25 mg or 0.5 mg (2 0.5 mg subcut WK 05/20/18 03/22/22 mg/1.5 mL) subcutaneous pen injector (Ozempic) diclofenac sodium 75 mg 75 mg PO BID 03/22/22 03/22/22 tablet,delayed release gabapentin 300 mg capsule 300 mg PO TID 03/22/22 03/22/22 gemfibrozil 600 mg tablet 600 mg PO BID 03/22/22 03/22/22 hydrocodone 7.5 mg-acetaminophen 1 tab PO Q6 PRN Severe Pain (Scale 03/22/22 03/22/22 325 mg tablet Score 7-10) losartan 100 mg tablet 100 mg PO DAILY 03/22/22 03/22/22 Previous Rx's Medication Instructions Recorded tramadol 50 mg tablet 50 mg PO Q4H PRN Pain, Moderate 08/26/18 #30 tabs Results & Data (ED) Vital Signs Vital Signs - 24 hr 03/22/22 09:10 03/22/22 09:00 Temperature 36.7 C Temperature Source Temporal Artery Scan Pulse Rate 97 H Pulse Rate [Apical] 95 H Respiratory Rate 22 18 Respiratory Effort / Characteristics Non-Labored Spontaneous Respiratory Depth Normal Blood Pressure 132/103 H Blood Pressure [Left Arm] 132/103 H Blood Pressure Mean 112 Blood Pressure Mean [Left Arm] 112 Blood Pressure Position Sitting Pulse Oximetry 97 96 Oxygen Delivery Method Room Air Room Air Sepsis Recent Fever Within 48 Hours No Sepsis New/Unexplained Change in Mental Status No Sepsis Action Taken by Nursing No Action Required Home Medications Current Medication List: was personally reviewed by me Laboratory Data Attestation: I reviewed the patient's lab results. Result diagrams: 03/22/22 10:30 03/22/22 10:30 Lab Results 03/22/22 03/22/22 03/22/22 Range/Units 10:15 10:30 10:30 WBC 8.69 (4.8-10.8) K/ul RBC 4.70 (4.63-6.08) M/uL Hgb 14.7 (14.0-18.0) g/dl Hct 42.3 (40.1-51.0) % MCV 90.0 (80.0-100.0) fL MCH 31.3 (25.0-34.0) pg MCHC 34.8 (32.0-36.0) g/dL RDW Std Deviation 39.3 (36.4-46.3) fL RDW Coeff of Balwinder 12.0 (11.5-14.5) % Plt Count (130-400) K/uL MPV (9.4-12.4) fL Immature Gran % (Auto) 1.2 % Neut % (Auto) 59.8 % Lymph % (Auto) 25.2 % [place] % (Auto) 6.9 % Eos % (Auto) 5.5 % Baso % (Auto) 1.4 % Neut # (Auto) 5.20 (1.4-6.5) K/uL Lymph # (Auto) 2.19 (1.2-3.4) K/uL [place] # (Auto) 0.60 (0.24-0.82) K/uL Eos # (Auto) 0.48 (0-0.50) K/uL Baso # (Auto) 0.12 (0-0.2) K/uL Immature Gran # (Auto) 0.10 H (0.00-0.02) K/uL PT 10.8 (9.0-12.0) Seconds INR 1.0 (0.9-1.1) APTT 25.6 (21.0-31.0) Seconds PTT Ratio 0.9 Sodium (136-145) mmol/L Potassium (3.5-5.1) mmol/L Chloride (98-107) mmol/L Carbon Dioxide (21-32) mmol/L Anion Gap (3-11) BUN (6-23) mg/dl Creatinine (0.6-1.4) mg/dl Est Cr Clr Drug Dosing ml/min Est GFR ( Amer) ml/min Est GFR (Non-Af Amer) ml/min BUN/Creatinine Ratio (10-20) Glucose (70-99(Fasting)) mg/dl Calcium (8.5-10.1) mg/dl Total Bilirubin (0.2-1.0) mg/dl AST (13-39) U/L ALT (7-52) U/L Alkaline Phosphatase (34-104) U/L Total Protein (6.0-8.3) gm/dl Albumin (3.4-5.0) gm/dl Globulin (2.5-4.0) gm/dl Albumin/Globulin Ratio (0.9-2) SARS-CoV-2, RNA, NAAT NEGATIVE (NEGATIVE) 03/22/22 Range/Units 10:30 WBC (4.8-10.8) K/ul RBC (4.63-6.08) M/uL Hgb (14.0-18.0) g/dl Hct (40.1-51.0) % MCV (80.0-100.0) fL MCH (25.0-34.0) pg MCHC (32.0-36.0) g/dL RDW Std Deviation (36.4-46.3) fL RDW Coeff of Balwinder (11.5-14.5) % Plt Count (130-400) K/uL MPV (9.4-12.4) fL Immature Gran % (Auto) % Neut % (Auto) % Lymph % (Auto) % [place] % (Auto) % Eos % (Auto) % Baso % (Auto) % Neut # (Auto) (1.4-6.5) K/uL Lymph # (Auto) (1.2-3.4) K/uL [place] # (Auto) (0.24-0.82) K/uL Eos # (Auto) (0-0.50) K/uL Baso # (Auto) (0-0.2) K/uL Immature Gran # (Auto) (0.00-0.02) K/uL PT (9.0-12.0) Seconds INR (0.9-1.1) APTT (21.0-31.0) Seconds PTT Ratio Sodium 143 (136-145) mmol/L Potassium 4.1 (3.5-5.1) mmol/L Chloride 103 (98-107) mmol/L Carbon Dioxide 27 (21-32) mmol/L Anion Gap 13 H (3-11) BUN 26 H (6-23) mg/dl Creatinine 1.33 (0.6-1.4) mg/dl Est Cr Clr Drug Dosing 70.2 ml/min Est GFR ( Amer) 64.1 ml/min Est GFR (Non-Af Amer) 55.3 ml/min BUN/Creatinine Ratio 19.5 (10-20) Glucose 190 H (70-99(Fasting)) mg/dl Calcium 10.0 (8.5-10.1) mg/dl Total Bilirubin 0.5 (0.2-1.0) mg/dl AST 12 L (13-39) U/L ALT 18 (7-52) U/L Alkaline Phosphatase 106 H (34-104) U/L Total Protein 8.0 (6.0-8.3) gm/dl Albumin 4.5 (3.4-5.0) gm/dl Globulin 3.5 (2.5-4.0) gm/dl Albumin/Globulin Ratio 1.3 (0.9-2) SARS-CoV-2, RNA, NAAT (NEGATIVE) Administered Medications Gabapentin (Gabapentin 300 Mg Cap) 300 mg PO TID DIANE Stop: 04/21/22 14:59 Last Admin: 03/22/22 15:51 Dose: 300 mg Documented By: BT Oxycodone HCl (Oxycodone Hcl Ir 5 Mg Tab (Immediate Release)) 5 mg PO Q4H PRN PRN Reason: Moderate Pain Stop: 04/05/22 14:13 Last Admin: 03/22/22 15:10 Dose: 5 mg Documented By: BT Discontinued Medications Hydromorphone HCl (Hydromorphone Inj 1 Mg/Ml Syringe) 1 mg IV NOW STA Stop: 03/22/22 09:58 Last Admin: 03/22/22 10:21 Dose: 1 mg Documented By: ULISES Ondansetron HCl (Ondansetron Inj 2 Mg/Ml 2 Ml Vial) 4 mg IV NOW STA Stop: 03/22/22 09:58 Last Admin: 03/22/22 10:21 Dose: 4 mg Documented By: ULISES ECG Data Attestation: I personally reviewed and interpreted this ECG as follows: Indication: + other (preop) Rate (beats per minute): 88 Rhythm: normal sinus ECG Intervals/blocks: + First degree AV block ECG [place]: + Normal ECG ST segments: + Normal ST segments Comparison ECG Date: from (02/12) Change: no significant change Discharge Plan Visit Data Chief Complaint: Back Injury/Pain Stated Complaint: SEVERE BACK PAIN ED Provider: Livan Fleming ED Midlevel Provider: María Lemons Discharge Problem: Lumbar back pain with radiculopathy affecting left lower extremity, Intractable low back pain, Abnormal finding on EKG Patient Disposition: Admitted As Inpatient Discharge Instructions Interventions: ED Discharge Assessment Last Done: 03/22/22 12:50
--- NOTE | 2022-03-22 10:29 | History & Physical Report ---
Date of Service March 22, 2022 Assessment & Plan (1) Lumbar back pain with radiculopathy affecting left lower extremity: Plan: History of 2 prior lumbar surgeries. Increasing lumbar back pain with radiation to left groin and left leg with left leg paresthesias. Hardware removal and lumbar decompression and fusion surgery planned 03/23/[address] Gay Hold home diclofenac, tramadol, hydrocodone Acetaminophen, oxycodone, Dilaudid as needed pain Bowel regimen [facility] consult. DAI Deal with Dr. Gay's office was made aware of patient by ER provider Will make n.p.o. midnight (2) Abnormal finding on EKG: Plan: Preop EKG from 02/13/2022: Sinus rhythm, rate 91, borderline criteria for anterior lateral infarct. Anesthesia had recommended cardiac clearance prior to undergoing surgery. Unfortunately this was unable to be completed in a timely manner EKG: Sinus rhythm, Q waves anterior leads Patient denies any chest pain, shortness of breath, exertional chest pain or shortness of breath. Recently sedentary secondary to back pain, prior was able to walk 100 yards without shortness of breath or chest pain Troponin pending Echo Cardiology consult for assistance in pre-op cardiac evaluation (3) DM type 2 (diabetes mellitus, type 2): Plan: A1c: 9 on 02/20/2022 Hold home glycemic agents Basal bolus insulin per protocol (4) HTN (hypertension): Plan: Patient's BP elevated in ER likely secondary to pain Monitor Patient had losartan today Will hold tomorrow's losartan in preparation for surgery, plan to resume losartan on 03/24/2022, or possibly postop depending on patient's BP (5) HLD (hyperlipidemia): Plan: Continue gemfibrozil (6) DELMY on CPAP: Plan: Continue CPAP at bedtime (7) Lower extremity edema: Plan: Chronic bilateral lower extremity edema. Patient denies known history of CHF Had Lasix today Will hold Lasix in preparation for surgery DVT Prophylaxis SCDs Full Code as per discussion with pt Follows with Dr Jose Luis Hamilton in [place] for routine care Pt was seen and care coordinated with Dr Waggoner. See addendum History of Present Illness Chief Complaint: Back pain, preop clearance Primary Care Provider: Jose Luis Busby MD Patient is 66-year-old male with PMH DM II, HTN, HLD, DELMY on CPAP, obesity, chronic LE edema, presented to ER for " preop clearance". Patient is scheduled for lumbar hardware removal and planned decompression and fusion of lumbar spine tomorrow, 03/23/[address] Gay. Patient having low back pain. Had injection in 12/2021 for lumbar back pain. Then reports increased low back pain with radiation to left groin and left leg with associated paresthesias. Has to use cane to walker to ambulate. No loss of control of bowel or bladder. Using diclofenac, tramadol, hydrocodone as needed for pain without relief. Patient states has not taken tramadol or hydrocodone for approximately 1 week as he did not feel it was helping. Patient had preop evaluation with [facility] on 03/17/2022. A1c: 9 in 01/2022. He has been watching his diet for past month and reports cut back on sugars. Preop EKG from 02/13/2022: Sinus rhythm, rate 91, borderline criteria for anterior lateral infarct. Anesthesia had recommended cardiac clearance prior to undergoing surgery. Unfortunately this was unable to be completed, and patient reports increased pain that is intolerable so came to ER. Patient has reported history of positive stress test in 2012, with reported cardiac cath with no interventions needed. Patient denies any chest pain, shortness of breath or exertional chest pain or shortness of breath. Unfortunately over the past 2 months with his lumbar back pain he has been quite sedentary. Prior to onset of severe pain he reports was able to walk 100 yards without any SOB or CP. States chronic bilateral lower extremity edema and uses Lasix. Feels edema is at baseline. Denies any known history of CHF. Patient states watching his diet and lost 50 pounds in past 3 months. Hasn't been using his CPAP as he has been sitting in recliner secondary to back pain. Denies fever/chills, diaphoresis, N/V/D/C, LIANG, dizziness, syncope, vision changes, neck pain, orthopnea, palpitations, cough, sore throat, choking, otalgia, rhinorrhea, abdominal pain, extremity weakness, rashes, urinary symptoms. Allergies Allergy/AdvReac Type Severity Reaction Status Date / Time No Known Allergies Allergy Verified 08/24/18 10:40 Home Medications Medication Instructions Recorded Confirmed Type empagliflozin 25 mg tablet 25 mg PO QAM 05/11/18 03/22/22 History (Jardiance) furosemide 40 mg tablet 40 mg PO QAM 05/11/18 03/22/22 History glimepiride 2 mg tablet 4 mg PO BID 05/11/18 03/22/22 History metformin 1,000 mg tablet 1,000 mg PO BID 05/11/18 03/22/22 History potassium chloride 10 mEq 10 meq PO BID 05/11/18 03/22/22 History capsule,extended release semaglutide 0.25 mg or 0.5 mg (2 0.5 mg subcut WK 05/20/18 03/22/22 History mg/1.5 mL) subcutaneous pen injector (Ozempic) tramadol 50 mg tablet 50 mg PO Q4H PRN Pain, Moderate 08/26/18 03/22/22 Rx #30 tabs diclofenac sodium 75 mg 75 mg PO BID 03/22/22 03/22/22 History tablet,delayed release gabapentin 300 mg capsule 300 mg PO TID 03/22/22 03/22/22 History gemfibrozil 600 mg tablet 600 mg PO BID 03/22/22 03/22/22 History hydrocodone 7.5 mg-acetaminophen 1 tab PO Q6 PRN Severe Pain (Scale 03/22/22 03/22/22 History 325 mg tablet Score 7-10) losartan 100 mg tablet 100 mg PO DAILY 03/22/22 03/22/22 History Past Med/Surg History Medical History (Updated 03/22/22 @ 12:04 by Trish Frankel PA-C) DM type 2 (diabetes mellitus, type 2) NIDDM DVT (deep venous thrombosis) Lower extremity--Postoperative HLD (hyperlipidemia) HTN (hypertension) 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 History of ear surgery History of lumbar spinal fusion 08/25/18: Glidescope 4, ETT 8.5. 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 Designer Required: No Beliefs That Will Affect Care: None marital status: Current Living Situation: Spouse Feels Safe at Home: Yes Assistive Devices: Cane, CPAP, Denture - Upper and Walker Review of Systems Review of Systems: All systems reviewed & are unremarkable except as noted in HPI & below Physical Exam Physical Exam: General: mild distress secondary to back pain, obese, pleasant male Head: normocephalic, atraumatic Eyes: conjunctiva non-injected, anicteric ENT: normal inspection external ears, nose, mucous membranes moist Neck: supple, trachea midline Lungs: clear, no respiratory distress, no wheezing/rhonchi/rales CV: RRR, no murmur, 1-2+ pretibial edema Abd: protuberant, normal BS, soft, non-tender Ext: no cyanosis, no calf tenderness; bilateral pedal pushes and pulls intact, sensation to light touch intact Neuro: A&O x 3, no focal deficits noted, normal affect Skin: warm, dry Results & Data Results & Data ([facility]) Vital Signs (Past 12 Hours) Vital Signs Temp Pulse Resp BP Pulse Ox O2 Del Method 03/22/22 09:10 36.7 C 97 H 22 132/103 H 97 Room Air Laboratory Results Short CBC 03/22/22 Range/Units 10:30 WBC 8.69 (4.8-10.8) K/ul Hgb 14.7 (14.0-18.0) g/dl Hct 42.3 (40.1-51.0) % Plt Count (130-400) K/uL BMP 03/22/22 10:30 Sodium 143 Potassium 4.1 Chloride 103 Carbon Dioxide 27 BUN 26 H Creatinine 1.33 Glucose 190 H Calcium 10.0 Liver Function 03/22/22 Range/Units 10:30 Total Bilirubin 0.5 (0.2-1.0) mg/dl AST 12 L (13-39) U/L ALT 18 (7-52) U/L Alkaline Phosphatase 106 H (34-104) U/L Albumin 4.5 (3.4-5.0) gm/dl Supervising Physician Co-Signing Physician Notes Patient with obesity, DM2, chronic low back pain now with radicular symptoms. Inability to lie down and limits mobility. Scheduled for potential lumbar surgery with Orthopedic surgery 03/23/2022. Admitted for pre-op risk stratification and Cardiology risk stratification due to abnormal ECG findings. Patient without chest pain, shortness of breath, n/v on ambulation but ambulation limited. ECG on admission without ischemic changes. Physical exam with obese individual hunched in chair due low back pain. Lungs CTAB, heart RRR, abdomen soft and nontender with present BS, LE swollen without pitting edema. Troponin, ECG, TTE, Cardiology consult. A1c, diabetic consult to pharmacy, insulin while inpatient. Hold losartan and lasix in AM prior to surgery. NPO at midnight. Discussed with Trish Frankel PA-C and agree with rest of plan as outlined in H&P above.
[2022-03-22 11:03] LABS: Partial Thromboplastin Ratio 0.9; Partial Thromboplastin Time 25.6 Seconds (21.0-31.0); Prothrombin Time 10.8 Seconds (9.0-12.0)
[2022-03-22 11:11] LABS: Albumin Globulin Ratio 1.3 (0.9-2); Albumin Level 4.5 gm/dl (3.4-5.0); BUN Creatinine Ratio 19.5 (10-20); Bilirubin,Total 0.5 mg/dl (0.2-1.0); Creatinine Clr Calc Pharmacy 70.2 ml/min; Est GFR (African American) 64.1 ml/min; Est GFR (Non-African American) 55.3 ml/min; Globulin 3.5 gm/dl (2.5-4.0); Potassium 4.1 mmol/L (3.5-5.1)
[2022-03-22 11:19] LABS: Basophils # (auto) 0.12 K/uL (0-0.2); Basophils % (auto) 1.4 %; Eosinophils # (auto) 0.48 K/uL (0-0.50); Eosinophils % (auto) 5.5 %; Hematocrit (blood only) 42.3 % (40.1-51.0); Hemoglobin 14.7 g/dl (14.0-18.0); Immature Granulocytes % (auto) 1.2 %; Lymphocytes # (auto) 2.19 K/uL (1.2-3.4); Lymphocytes % (auto) 25.2 %; Mean Corpuscular Hemoglobin 31.3 pg (25.0-34.0); Mean Corpuscular Hgb Conc 34.8 g/dL (32.0-36.0); Monocytes % (auto) 6.9 %; Neutrophils % (auto) 59.8 %; RDW Standard Deviation 39.3 fL (36.4-46.3); White Blood Count 8.69 K/ul (4.8-10.8)
[2022-03-22 12:24] LABS: Appearance Urine Clear (Clear); Bilirubin Urine Negative (Negative); Blood Urine Negative (Negative); Color Urine Orange; Glucose Urine UA 3+ (Negative); Ketones Urine Negative (Negative); Leukocyte Esterase Urine Negative (Negative); Nitrite Urine Negative (Negative); Protein Urine Negative (Negative); Specific Gravity Urine 1.012 (1.000-1.030); Urobilinogen Urine Negative (Negative)
[2022-03-22] MEDS ORDERED: GLUCAGON FOR INJ 1 MG VIAL SQ PRN (14:14)
[2022-03-22] MEDS ORDERED: MAGNESIUM HYDROXIDE SUSP 30 ML UDC PO PRN (14:14)
[2022-03-22] MEDS ORDERED: GLUCOSE 10 TAB/TUBE PO PRN (14:14)
[2022-03-22] MEDS ORDERED: DEXTROSE 50% 50 ML SYRINGE IV PRN (14:14)
[2022-03-22] MEDS ORDERED: GLUCOSE 40% GEL 15 GM TUBE PO PRN (14:14)
[2022-03-22] MEDS ORDERED: POLYETHYLENE (MIRALAX) 17 GM PACK PO PRN (14:14)
[2022-03-22] MEDS ORDERED: ACETAMINOPHEN 325 MG TAB PO PRN (14:14)
[2022-03-22] MEDS ORDERED: CARBOHYDRATES FOR HYPOGLYCEMIA PO PRN ×2 (14:14→16:56)
--- NOTE | 2022-03-22 15:01 | Cardiology Consultation ---
Date of Consultation March 22, 2022 Assessment & Plan (1) Abnormal finding on EKG: (2) Encounter for pre-operative examination: (3) HTN (hypertension): (4) DELMY on CPAP: (5) Spinal stenosis, lumbar region with neurogenic claudication: Plan Patient is a 66-year-old male presents through ER evaluation for severe unrelenting back pain with ongoing issues 1. Severe spinal stenosis with neurogenic claudication status post prior surgical intervention 2. Morbid obesity 3. Type 2 diabetes mellitus 4. Obstructive sleep apnea with prescribed CPAP, not in use 5. Coronary angiography 07/18/2018 for abnormal EKG mild to moderate luminal irregularities without obstruction. Report on V I O chart 08/19/2018 (outside information), date corrected in history 6. Abnormal EKG with poor R wave progression across the anterior leads Patient personally seen and examined. EKG abnormal but not significantly changed from 2019, performed prior to coronary angiography for further assessment. As above no obstructive disease discerned. Patient denies any anginal complaints. No history of valvular heart disease congestive heart failure or arrhythmia. Prior to back injury function capacity well above 5 METS No prior difficulties with anesthesia Plan: We will review results of echocardiogram ordered but do not anticipate findings that would delay surgery Operative risks increased secondary to underlying morbidities including morbid obesity and obstructive sleep apnea No indications for additional cardiac testing History of Present Illness Reason for Consultation: Preoperative cardiovascular evaluation, abnormal EKG Requesting Physician: Dr. Waggoner Attending Physician: Ross Waggoner MD History of Present Illness Patient is a 66-year-old male from [facility] ongoing issues include 1. Severe spinal stenosis with neurogenic claudication status post prior surgical intervention 2. Morbid obesity 3. Type 2 diabetes mellitus 4. Obstructive sleep apnea with prescribed CPAP, not in use 5. Coronary angiography 07/18/2018 for abnormal EKG mild to moderate luminal irregularities without obstruction. Report on V I O chart 08/19/2018 (outside information), date corrected in history 6. Abnormal EKG with poor R wave progression across the anterior leads Patient is referred now for preoperative evaluation for planned surgical intervention for severe back pain, neurogenic claudication. Patient notes nearly unrelenting pain since December. Has been sleeping in the chair since that time. Patient scheduled for surgical intervention on 03/23/2022 however surgery initially canceled due to abnormal EKG Patient unable to stand pain further, presented to ER for assessment and plan Patient without prior history of myocardial infarction angina or congestive heart failure. No history of valvular disease. 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 No history of arrhythmias, syncope or near syncope. No history of TIA or stroke. No history of renal hepatic disease No complications with prior surgical anesthesia No recent fevers chills sweats or unexplained infections. No bleeding difficulties melena hematochezia dysuria hematuria Has not been using CPAP due to inability to lie in bed Chronic lower extremity edema present per patient but unchanged Allergies Allergy/AdvReac Type Severity Reaction Status Date / Time No Known Allergies Allergy Verified 08/24/18 10:40 Home Medications Medication Instructions Recorded Confirmed Type empagliflozin 25 mg tablet 25 mg PO QAM 05/11/18 03/22/22 History (Jardiance) furosemide 40 mg tablet 40 mg PO QAM 05/11/18 03/22/22 History glimepiride 2 mg tablet 4 mg PO BID 05/11/18 03/22/22 History metformin 1,000 mg tablet 1,000 mg PO BID 05/11/18 03/22/22 History potassium chloride 10 mEq 10 meq PO BID 05/11/18 03/22/22 History capsule,extended release semaglutide 0.25 mg or 0.5 mg (2 0.5 mg subcut WK 05/20/18 03/22/22 History mg/1.5 mL) subcutaneous pen injector (Ozempic) tramadol 50 mg tablet 50 mg PO Q4H PRN Pain, Moderate 08/26/18 03/22/22 Rx #30 tabs diclofenac sodium 75 mg 75 mg PO BID 03/22/22 03/22/22 History tablet,delayed release gabapentin 300 mg capsule 300 mg PO TID 03/22/22 03/22/22 History gemfibrozil 600 mg tablet 600 mg PO BID 03/22/22 03/22/22 History hydrocodone 7.5 mg-acetaminophen 1 tab PO Q6 PRN Severe Pain (Scale 03/22/22 03/22/22 History 325 mg tablet Score 7-10) losartan 100 mg tablet 100 mg PO DAILY 03/22/22 03/22/22 History Patient History Medical History DM type 2 (diabetes mellitus, type 2) NIDDM DVT (deep venous thrombosis) Lower extremity--Postoperative HLD (hyperlipidemia) HTN (hypertension) 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 Hx of colonoscopy S/P left knee arthroscopy Family History Mother Pancreatic cancer Father Heart disease [place] in his 80s Social History Smoking Status: Former smoker Second Hand Exposure: No; Hx Alcohol Use: No Hx Substance Use: No Preferred Language: Albanian Communication Ability: Effective Cardboard Cutter Required: No Beliefs That Will Affect Care: None marital status: Current Living Situation: Spouse Feels Safe at Home: Yes Assistive Devices: Cane, CPAP, Denture - Upper and Walker Physical Exam Constitutional: WD/WN, vitals as above + morbidly obese Eyes: PERRL, conjunctivae normal, anicteric sclerae ENMT: external ear and nose normal, oropharynx normal Neck: trachea midline, no thyromegaly Respiratory: normal respiratory effort, lungs clear to auscultation Cardiovascular: RRR, no murmur, no edema Vessels: no JVD Extremities: + edema (1-2+) Chest (Breasts): Additional Comments: Large body habitus, barrel chest Gastrointestinal (Abdomen): normal bowel sounds, soft, nontender, no hepatosplenomegaly Musculoskeletal: Head/Neck/Chest: + head abnormal to inspection, normocephalic and head atraumatic Results & Data ([facility]) Vital Signs (Past 12 Hours) Vital Signs Temp Pulse Pulse Resp BP BP Pulse Ox 03/22/22 12:50 88 18 152/99 H 92 03/22/22 12:16 88 18 152/99 H 92 03/22/22 09:00 95 H 18 132/103 H 96 03/22/22 09:10 36.7 C 97 H 22 132/103 H 97 O2 Del Method 03/22/22 12:50 03/22/22 12:16 Room Air 03/22/22 09:00 Room Air 03/22/22 09:10 Room Air Laboratory Results Laboratory Results - last 24 hr 03/22/22 03/22/22 03/22/22 10:15 10:30 10:30 WBC 8.69 RBC 4.70 Hgb 14.7 Hct 42.3 MCV 90.0 MCH 31.3 MCHC 34.8 RDW Std Deviation 39.3 RDW Coeff of Balwinder 12.0 Plt Count MPV Immature Gran % (Auto) 1.2 Neut % (Auto) 59.8 Lymph % (Auto) 25.2 [place] % (Auto) 6.9 Eos % (Auto) 5.5 Baso % (Auto) 1.4 Neut # (Auto) 5.20 Lymph # (Auto) 2.19 [place] # (Auto) 0.60 Eos # (Auto) 0.48 Baso # (Auto) 0.12 Immature Gran # (Auto) 0.10 H Plt Count ,Citrate PT 10.8 INR 1.0 APTT 25.6 PTT Ratio 0.9 Sodium Potassium Chloride Carbon Dioxide Anion Gap BUN Creatinine Est Cr Clr Drug Dosing Est GFR ( Amer) Est GFR (Non-Af Amer) BUN/Creatinine Ratio Glucose Calcium Total Bilirubin AST ALT Alkaline Phosphatase Troponin I High Sens Total Protein Albumin Globulin Albumin/Globulin Ratio Urine Color Urine Appearance Urine pH Ur Specific [place] Urine Protein Urine Glucose (UA) Urine Ketones Urine Blood Urine Nitrite Urine Bilirubin Urine Urobilinogen Ur Leukocyte Esterase SARS-CoV-2, RNA, NAAT NEGATIVE 03/22/22 03/22/22 03/22/22 10:30 11:49 11:49 WBC RBC Hgb Hct MCV MCH MCHC RDW Std Deviation RDW Coeff of Balwinder Plt Count MPV Immature Gran % (Auto) Neut % (Auto) Lymph % (Auto) [place] % (Auto) Eos % (Auto) Baso % (Auto) Neut # (Auto) Lymph # (Auto) [place] # (Auto) Eos # (Auto) Baso # (Auto) Immature Gran # (Auto) Plt Count ,Citrate 221 PT INR APTT PTT Ratio Sodium 143 Potassium 4.1 Chloride 103 Carbon Dioxide 27 Anion Gap 13 H BUN 26 H Creatinine 1.33 Est Cr Clr Drug Dosing 70.2 Est GFR ( Amer) 64.1 Est GFR (Non-Af Amer) 55.3 BUN/Creatinine Ratio 19.5 Glucose 190 H Calcium 10.0 Total Bilirubin 0.5 AST 12 L ALT 18 Alkaline Phosphatase 106 H Troponin I High Sens 8.1 Total Protein 8.0 Albumin 4.5 Globulin 3.5 Albumin/Globulin Ratio 1.3 Urine Color Urine Appearance Urine pH Ur Specific [place] Urine Protein Urine Glucose (UA) Urine Ketones Urine Blood Urine Nitrite Urine Bilirubin Urine Urobilinogen Ur Leukocyte Esterase SARS-CoV-2, RNA, NAAT 03/22/22 12:15 WBC RBC Hgb Hct MCV MCH MCHC RDW Std Deviation RDW Coeff of Balwinder Plt Count MPV Immature Gran % (Auto) Neut % (Auto) Lymph % (Auto) [place] % (Auto) Eos % (Auto) Baso % (Auto) Neut # (Auto) Lymph # (Auto) [place] # (Auto) Eos # (Auto) Baso # (Auto) Immature Gran # (Auto) Plt Count ,Citrate PT INR APTT PTT Ratio Sodium Potassium Chloride Carbon Dioxide Anion Gap BUN Creatinine Est Cr Clr Drug Dosing Est GFR ( Amer) Est GFR (Non-Af Amer) BUN/Creatinine Ratio Glucose Calcium Total Bilirubin AST ALT Alkaline Phosphatase Troponin I High Sens Total Protein Albumin Globulin Albumin/Globulin Ratio Urine Color [place] Urine Appearance Clear Urine pH 5.0 Ur Specific [place] 1.012 Urine Protein Negative Urine Glucose (UA) 3+ H Urine Ketones Negative Urine Blood Negative Urine Nitrite Negative Urine Bilirubin Negative Urine Urobilinogen Negative Ur Leukocyte Esterase Negative SARS-CoV-2, RNA, NAAT ECG Additional Comments: EKG 03/22/2022: Sinus rhythm with 1st degree A-V block Low voltage QRS Cannot rule out Anterior infarct (cited on or before 13-FEB-2022) Abnormal ECG When compared with ECG of 13-FEB-2022 12:54, [place] interval has increase in comparison to prior study of 2019 on chart no significant change other than slight increase in NJ interval
[2022-03-22] MEDS: oxyCODONE HCL IR 5 MG TAB (IMMEDIATE RELEASE) PO PRN ×2 (15:10→19:51)
[2022-03-22] MEDS: GABAPENTIN 300 MG CAP PO SCH ×2 (15:51→19:58)
[2022-03-22] MEDS ORDERED: PHARMACY GLYCEMIC MGMT CONSULT PRN (16:56)
[2022-03-22] MEDS: INSULIN ASPART PER UNIT SC SCH ×2 (17:05→22:19)
[2022-03-22] MEDS: HYDROmorphone INJ 0.5 MG/0.5 ML SYR IV PRN ×2 (17:12→21:35)
[2022-03-22] MEDS: gemfibroziL 600 MG TAB PO SCH (19:58)
[2022-03-22] MEDS: DOCUSATE SODIUM 100 MG CAP PO SCH (19:58)
[2022-03-22] MEDS ORDERED: LANTUS PER UNIT CHARGE SQ SCH (21:00)
[2022-03-22] MEDS ORDERED: LACTATED RINGER'S 1,000 ML IV SCH (22:00)
[2022-03-23] MEDS ORDERED: HYDROmorphone INJ 0.5 MG/0.5 ML SYR IV STA (00:35)
--- NOTE | 2022-03-23 05:24 | Electrocardiogram Report ---
Test Reason : Blood Pressure : / mmHG Vent. Rate : 088 BPM Atrial Rate : 088 BPM P-R Int : 230 ms QRS Dur : 088 ms QT Int : 374 ms P-R-T Axes : 032 -03 028 degrees QTc Int : 452 ms Sinus rhythm with 1st degree A-V block Low voltage QRS Cannot rule out Anterior infarct (cited on or before 13-FEB-2022) Abnormal ECG When compared with ECG of 13-FEB-2022 12:54, ND interval has increased Confirmed by Jason Ivy ([id number]) on 03/23/2022 5:24:00 AM Referred By: REFERRED SELF Confirmed By:Jason Ivy
[2022-03-23] MEDS: HYDROmorphone INJ 0.5 MG/0.5 ML SYR IV PRN (05:57)
[2022-03-23] MEDS ORDERED: Nursing to Pharmacy Communication SCH ×2 (06:30→17:15)
[2022-03-23 07:47] LABS: Estimated Average Glucose 183 mg/dl
[2022-03-23] MEDS: INSULIN ASPART PER UNIT SC SCH ×4 (08:42→21:09)
[2022-03-23] MEDS: LANTUS PER UNIT CHARGE SQ SCH ×2 (08:43→21:09)
[2022-03-23] MEDS: GABAPENTIN 300 MG CAP PO SCH ×3 (08:43→20:01)
[2022-03-23] MEDS: gemfibroziL 600 MG TAB PO SCH ×2 (08:43→20:01)
[2022-03-23] MEDS: DOCUSATE SODIUM 100 MG CAP PO SCH (08:43)
[2022-03-23] MEDS: oxyCODONE HCL IR 5 MG TAB (IMMEDIATE RELEASE) PO PRN (08:45)
[2022-03-23 08:51] LABS: Prothrombin Time 10.7 Seconds (9.0-12.0)
[2022-03-23 09:06] LABS: BUN Creatinine Ratio 18.3 (10-20); Calcium 9.9 mg/dl (8.5-10.1); Creatinine Clr Calc Pharmacy 74.3 ml/min; Est GFR (African American) 68.4 ml/min; Magnesium 2.3 mg/dl (1.7-2.4); Phosphorus 3.7 mg/dl (2.5-4.9); Potassium 4.1 mmol/L (3.5-5.1)
[2022-03-23 10:00] LABS: Hematocrit (blood only) 42.9 % (40.1-51.0); Hemoglobin 14.8 g/dl (14.0-18.0); Mean Corpuscular Hemoglobin 30.9 pg (25.0-34.0); Mean Corpuscular Hgb Conc 34.5 g/dL (32.0-36.0); Mean Corpuscular Volume 89.6 fL (80.0-100.0); RDW Coefficient of Variation 12.1 % (11.5-14.5); RDW Standard Deviation 39.6 fL (36.4-46.3); Red Blood Count 4.79 M/uL (4.63-6.08); White Blood Count 10.01 K/ul (4.8-10.8)
[2022-03-23 10:01] LABS: Eosinophils # (auto) 0.55 K/uL (0-0.50); Eosinophils % (auto) 5.5 %; Lymphocytes # (auto) 2.61 K/uL (1.2-3.4); Lymphocytes % (auto) 26.1 %; Monocytes # (auto) 0.76 K/uL (0.24-0.82); Monocytes % (auto) 7.6 %; Neutrophils # (auto) 5.89 K/uL (1.4-6.5); Neutrophils % (auto) 58.8 %
--- NOTE | 2022-03-23 10:07 | Pharmacy Report ---
Pharmacy Glycemic Short Note 2 - Date of Service March 23, 2022 - Glycemic Short BSG Results (Last 24 hours): 03/22/22 03/22/22 03/22/22 10:30 16:19 20:34 Glucose 190 H POC Glucose 229 H 116 H 03/23/22 03/23/22 06:04 07:48 Glucose 127 H POC Glucose 178 H OUTPATIENT ANTIDIABETIC REGIMEN: * Metformin 1000 mg PO BIDM * Glimepiride 4 mg PO BIDM * Jardiance 25 mg PO AM * Ozempic 0.5 mg SC every Wednesday * HbA1c = 8.0% (03/22/22) ASSESSMENT: * 66 yo M admitted last evening secondary to preoperative clearance by cardiology prior to surgery with Dr. Gay today. History of T2DM managed without insulin at home, just orals. A1c is elevated given age and comorbidities. Currently NPO for surgery today. * BSG upon arrival to floor last evening was 229 mg/dL. Given 12 units of Novolog with meal, and BSG dropped to 116 mg/dL at bedtime. * Will loosen Novolog parameters today. * Fasting BSG still elevated at 178 mg/dL this AM. * Will increase basal scale slightly despite patient being NPO. Basal insulin does not peak and this should control BSG throughout surgery until he is able to eat postoperatively. * May need to back off basal insulin this evening pending BSGs. PLAN FOR INPATIENT GLYCEMIC CONTROL: * Hold outpatient oral diabetes medications * Basal insulin * Lantus 0-20 units SC BID * Bolus insulin * NovoLog per scale ACHS or Q6hrs while NPO * Goal Range: Low 110 mg/dL - High 140 mg/dL * Correction Factor: 25 mg/dL/unit * Nutritional / Prandial insulin per carb ratio of 1 unit per 8 grams CHO consumed
[2022-03-23] MEDS ORDERED: fentaNYL citrate 100 MCG/2 ML VIAL ONE (10:23)
[2022-03-23] MEDS ORDERED: MIDAZOLAM HCL 1 MG/ML 2ML VIAL ONE (10:24)
[2022-03-23] MEDS ORDERED: HYDROmorphone INJ 0.5 MG/0.5 ML SYR IV PRN ×2 (10:39→16:33)
--- NOTE | 2022-03-23 10:47 | Hospitalist Progress Note ---
Date of Service March 23, 2022 Assessment & Plan (1) Lumbar back pain with radiculopathy affecting left lower extremity: Plan: - History of 2 prior lumbar surgeries - Increasing lumbar back pain with radiation to left groin and left leg with left leg paresthesias. - scheduled for Hardware removal and lumbar decompression and fusion surgery planned 03/23/[address] Gay - Hold home diclofenac, tramadol, hydrocodone - Acetaminophen, oxycodone, Dilaudid as needed pain - Bowel regimen - Orthospine consult - NPO pending surgery (2) Abnormal finding on EKG: Plan: - Preop EKG from 02/13/2022: Sinus rhythm, rate 91, borderline criteria for anterior lateral infarct. - Anesthesia had recommended cardiac clearance prior to undergoing surgery - EKG: Sinus rhythm, poor R wave progression - Patient denies any chest pain, shortness of breath, exertional chest pain or shortness of breath - Recently sedentary secondary to back pain, prior was able to walk 100 yards without shortness of breath or chest pain - Troponin negative - Echo wnl - Cardiology consult for assistance in pre-op cardiac evaluation - no additional testing, can proceed to surgery per Cardiology (3) DM type 2 (diabetes mellitus, type 2): Plan: - A1c: 8% 02/2022 - Hold home glycemic agents - Basal bolus insulin per protocol (4) HTN (hypertension): Plan: - Patient's BP elevated in ER likely secondary to pain - Monitor - Patient had losartan today - hold losartan today in preparation for surgery, - plan to resume losartan on 03/24/2022 (5) HLD (hyperlipidemia): Plan: - Continue gemfibrozil (6) DELMY on CPAP: Plan: - Continue CPAP at bedtime (7) Lower extremity edema: Plan: - recent bilateral lower extremity edema from keep legs dependent - Patient denies known history of CHF - started on Lasix for LE edema as OP - hold Lasix - may not need Lasix going forward as this is likely not helping LE edema as his edema/swelling is likely from dependent legs as patient unable to lie in bed due to back pain Plan DVT Prophylaxis: SCDs Full Code Dispo: Telemetry Follows with Dr Jose Luis Hamilton in [place], [place] for routine care Ross Waggoner MD Hospital Medicine Admission and Anticipated Discharge Date Admission Date: March 22, 2022 Subjective Patient with obesity and DM admitted for lumbar surgery with ortho. Cardiology consulted for pre-op, ok to proceed for surgery without further testing. TTE wnl, EF 60%. NPO for surgery. Patient complaints of back pain that is unchanged. Denies chest pain, shortness of breath, n/v/d, abdominal pain, cough, dysuria. Review of Systems Review of Systems: All systems reviewed & are unremarkable except as noted in Subjective Physical Exam Physical Exam: General: NAD, obese, pleasant male Head: normocephalic, atraumatic Eyes: conjunctiva non-injected, anicteric ENT: normal inspection external ears, nose, mucous membranes moist Neck: supple, trachea midline Lungs: clear, no respiratory distress, no wheezing/rhonchi/rales CV: RRR, no murmur, tense edema of bilateral LEs Abd: protuberant, normal BS, soft, non-tender Ext: no cyanosis, no calf tenderness; bilateral pedal pushes and pulls intact, sensation to light touch intact Neuro: A&O x 3, no focal deficits noted, normal affect Skin: warm, dry Results & Data Results & Data ([facility]) Vital Signs (Past 12 Hours) Vital Signs Temp Pulse Pulse Resp BP Pulse Ox O2 Del Method 03/23/22 08:01 86 03/23/22 07:50 36.7 C 87 20 173/77 H 94 Room Air 03/23/22 03:30 80 03/23/22 02:53 36.7 C 88 20 155/88 H 92 Room Air 03/22/22 23:21 36.4 C L 75 20 134/78 90 Room Air Diagnostic Findings Laboratory Results WBC 10.01 K/ul (4.8-10.8) 03/23/22 07:48 RBC 4.79 M/uL (4.63-6.08) 03/23/22 07:48 Hgb 14.8 g/dl (14.0-18.0) 03/23/22 07:48 Hct 42.9 % (40.1-51.0) 03/23/22 07:48 MCV 89.6 fL (80.0-100.0) 03/23/22 07:48 MCH 30.9 pg (25.0-34.0) 03/23/22 07:48 MCHC 34.5 g/dL (32.0-36.0) 03/23/22 07:48 RDW Std Deviation 39.6 fL (36.4-46.3) 03/23/22 07:48 RDW Coeff of Balwinder 12.1 % (11.5-14.5) 03/23/22 07:48 Plt Count K/uL (130-400) 03/23/22 07:48 MPV fL (9.4-12.4) 03/23/22 07:48 Immature Gran % (Auto) 1.0 % 03/23/22 07:48 Neut % (Auto) 58.8 % 03/23/22 07:48 Lymph % (Auto) 26.1 % 03/23/22 07:48 [place] % (Auto) 7.6 % 03/23/22 07:48 Eos % (Auto) 5.5 % 03/23/22 07:48 Baso % (Auto) 1.0 % 03/23/22 07:48 Neut # (Auto) 5.89 K/uL (1.4-6.5) 03/23/22 07:48 Lymph # (Auto) 2.61 K/uL (1.2-3.4) 03/23/22 07:48 [place] # (Auto) 0.76 K/uL (0.24-0.82) 03/23/22 07:48 Eos # (Auto) 0.55 K/uL (0-0.50) H 03/23/22 07:48 Baso # (Auto) 0.10 K/uL (0-0.2) 03/23/22 07:48 Immature Gran # (Auto) 0.10 K/uL (0.00-0.02) H 03/23/22 07:48 Plt Count ,Citrate 221 K/uL (130-400) 03/22/22 11:49 PT 10.7 Seconds (9.0-12.0) 03/23/22 07:48 INR 1.0 (0.9-1.1) 03/23/22 07:48 APTT 25.6 Seconds (21.0-31.0) 03/22/22 10:30 PTT Ratio 0.9 03/22/22 10:30 Sodium 140 mmol/L (136-145) 03/23/22 07:48 Potassium 4.1 mmol/L (3.5-5.1) 03/23/22 07:48 Chloride 102 mmol/L (98-107) 03/23/22 07:48 Carbon Dioxide 27 mmol/L (21-32) 03/23/22 07:48 Anion Gap 11 (3-11) 03/23/22 07:48 BUN 23 mg/dl (6-23) 03/23/22 07:48 Creatinine 1.26 mg/dl (0.6-1.4) 03/23/22 07:48 Est Cr Clr Drug Dosing 74.3 ml/min 03/23/22 07:48 Est GFR ( Amer) 68.4 ml/min 03/23/22 07:48 Est GFR (Non-Af Amer) 59.0 ml/min 03/23/22 07:48 BUN/Creatinine Ratio 18.3 (10-20) 03/23/22 07:48 Glucose 127 mg/dl (70-99(Fasting)) H 03/23/22 07:48 POC Glucose 178 mg/dl (70-99) H 03/23/22 06:04 Estimat Average Glucose 183 mg/dl 03/22/22 10:30 Hemoglobin A1c 8.0 % (4.5-5.6) H 03/22/22 10:30 Calcium 9.9 mg/dl (8.5-10.1) 03/23/22 07:48 Phosphorus 3.7 mg/dl (2.5-4.9) 03/23/22 07:48 Magnesium 2.3 mg/dl (1.7-2.4) 03/23/22 07:48 Total Bilirubin 0.5 mg/dl (0.2-1.0) 03/22/22 10:30 AST 12 U/L (13-39) L 03/22/22 10:30 ALT 18 U/L (7-52) 03/22/22 10:30 Alkaline Phosphatase 106 U/L (34-104) H 03/22/22 10:30 Troponin I High Sens 8.1 pg/ml (0-20) 03/22/22 11:49 Total Protein 8.0 gm/dl (6.0-8.3) 03/22/22 10:30 Albumin 4.5 gm/dl (3.4-5.0) 03/22/22 10:30 Globulin 3.5 gm/dl (2.5-4.0) 03/22/22 10:30 Albumin/Globulin Ratio 1.3 (0.9-2) 03/22/22 10:30 Urine Color [place] 03/22/22 12:15 Urine Appearance Clear (Clear) 03/22/22 12:15 Urine pH 5.0 (4.5-7.5) 03/22/22 12:15 Ur Specific [place] 1.012 (1.000-1.030) 03/22/22 12:15 Urine Protein Negative (Negative) 03/22/22 12:15 Urine Glucose (UA) 3+ (Negative) H 03/22/22 12:15 Urine Ketones Negative (Negative) 03/22/22 12:15 Urine Blood Negative (Negative) 03/22/22 12:15 Urine Nitrite Negative (Negative) 03/22/22 12:15 Urine Bilirubin Negative (Negative) 03/22/22 12:15 Urine Urobilinogen Negative (Negative) 03/22/22 12:15 Ur Leukocyte Esterase Negative (Negative) 03/22/22 12:15 SARS-CoV-2, RNA, NAAT NEGATIVE (NEGATIVE) 03/22/22 10:15 Medications Administered Current Inpatient Medications Acetaminophen (Acetaminophen 325 Mg Tab) 650 mg PO Q4H PRN PRN Reason: Pain or Fever Stop: 04/21/22 14:13 Dextrose (Dextrose 50% 50 Ml Syringe) 25 - 50 ml IV UD PRN; Protocol PRN Reason: Hypoglycemia Protocol Stop: 04/21/22 14:13 Docusate Sodium (Docusate Sodium 100 Mg Cap) 100 mg PO BID DIANE Stop: 04/21/22 20:59 Last Admin: 03/23/22 08:43 Dose: 100 mg Gabapentin (Gabapentin 300 Mg Cap) 300 mg PO TID DIANE Stop: 04/21/22 14:59 Last Admin: 03/23/22 08:43 Dose: 300 mg Gemfibrozil (Gemfibrozil 600 Mg Tab) 600 mg PO BID DIANE Stop: 04/21/22 20:59 Last Admin: 03/23/22 08:43 Dose: 600 mg Glucagon (Glucagon For Inj 1 Mg Vial) 1 mg SQ UD PRN; Protocol PRN Reason: Hypoglycemia Protocol Stop: 04/21/22 14:13 Glucose (Glucose 40% Gel 15 Gm Tube) 15 - 30 gm PO UD PRN; Protocol PRN Reason: Hypoglycemia Protocol Stop: 04/21/22 14:13 Glucose (Glucose 10 Tab/Tube) 4 - 8 tab PO UD PRN; Protocol PRN Reason: Hypoglycemia Treatment Stop: 04/21/22 14:13 Hydromorphone HCl (Hydromorphone Inj 0.5 Mg/0.5 Ml Syr) 0.5 mg IV Q4 PRN PRN Reason: Severe Pain Stop: 04/05/22 14:13 Insulin Aspart (Insulin Aspart Per Unit) 0 units SC Q6 [facility]; Protocol Stop: 04/22/22 06:44 Last Admin: 03/23/22 08:42 Dose: 2 units Insulin Glargine (Lantus Per Unit Charge) 0 units SQ BID DIANE; Protocol Stop: 04/21/22 20:59 Last Admin: 03/23/22 08:43 Dose: 15 units Losartan Potassium (Losartan Potassium 50 Mg Tab) 100 mg PO DAILY DIANE Stop: 04/23/22 08:59 Magnesium Hydroxide (Magnesium Hydroxide Susp 30 Ml Udc) 30 ml PO Q12H PRN PRN Reason: Constipation Stop: 04/21/22 14:13 Miscellaneous (Carbohydrates For Hypoglycemia ) 15 - 30 gm PO UD PRN PRN Reason: Hypoglycemia Protocol Stop: 04/21/22 14:13 Miscellaneous Information (Pharmacy Glycemic Mgmt Consult) 1 each N/A UD PRN PRN Reason: Consult Stop: 04/21/22 16:55 Oxycodone HCl (Oxycodone Hcl Ir 5 Mg Tab (Immediate Release)) 5 mg PO Q4H PRN PRN Reason: Moderate Pain Stop: 04/05/22 14:13 Last Admin: 03/23/22 08:45 Dose: 5 mg Polyethylene Glycol (Polyethylene (Miralax) 17 Gm Pack) 17 gm PO DAILY PRN PRN Reason: Constipation Stop: 04/21/22 14:13
--- NOTE | 2022-03-23 11:31 | History & Physical Report ---
Date of Service March 23, 2022 Assessment & Plan (1) Spinal stenosis, lumbar region with neurogenic claudication: Plan: L2-L4 decompression fusion, L1-L2 and L4-L5 hardware removal Admission and Anticipated Discharge Date Admission Date: March 22, 2022 History of Present Illness Chief Complaint: Back and bilateral leg pain Primary Care Provider: Jose Luis Busby MD This is a 66-year-old male well-known to me the presents with chronic persistent back and right leg pain. After failing extensive course of nonoperative care is here for surgical invention. Allergies Allergy/AdvReac Type Severity Reaction Status Date / Time No Known Allergies Allergy Verified 08/24/18 10:40 Home Medications Medication Instructions Recorded Confirmed Type empagliflozin 25 mg tablet 25 mg PO QAM 05/11/18 03/22/22 History (Jardiance) furosemide 40 mg tablet 40 mg PO QAM 05/11/18 03/22/22 History glimepiride 2 mg tablet 4 mg PO BID 05/11/18 03/22/22 History metformin 1,000 mg tablet 1,000 mg PO BID 05/11/18 03/22/22 History potassium chloride 10 mEq 10 meq PO BID 05/11/18 03/22/22 History capsule,extended release semaglutide 0.25 mg or 0.5 mg (2 0.5 mg subcut WK 05/20/18 03/22/22 History mg/1.5 mL) subcutaneous pen injector (Ozempic) tramadol 50 mg tablet 50 mg PO Q4H PRN Pain, Moderate 08/26/18 03/22/22 Rx #30 tabs diclofenac sodium 75 mg 75 mg PO BID 03/22/22 03/22/22 History tablet,delayed release gabapentin 300 mg capsule 300 mg PO TID 03/22/22 03/22/22 History gemfibrozil 600 mg tablet 600 mg PO BID 03/22/22 03/22/22 History hydrocodone 7.5 mg-acetaminophen 1 tab PO Q6 PRN Severe Pain (Scale 03/22/22 03/22/22 History 325 mg tablet Score 7-10) losartan 100 mg tablet 100 mg PO DAILY 03/22/22 03/22/22 History Past Med/Surg History Medical History DM type 2 (diabetes mellitus, type 2) NIDDM DVT (deep venous thrombosis) Lower extremity--Postoperative HLD (hyperlipidemia) HTN (hypertension) 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 Required: No Beliefs That Will Affect Care: None marital status: Current Living Situation: Spouse Feels Safe at Home: Yes Assistive Devices: Cane, CPAP, Denture - Upper and Walker Physical Exam Physical Exam: Patient is alert and oriented Heart regular rhythm Lungs clear Results & Data Results & [facility]) Vital Signs (Past 12 Hours) Vital Signs Temp Pulse Pulse Pulse Resp BP Pulse Ox 03/23/22 10:50 36.7 C 99 H 20 95 03/23/22 08:01 86 03/23/22 07:50 36.7 C 87 20 173/77 H 94 03/23/22 03:30 80 03/23/22 02:53 36.7 C 88 20 155/88 H 92 O2 Del Method 03/23/22 10:50 Room Air 03/23/22 08:01 03/23/22 07:50 Room Air 03/23/22 03:30 03/23/22 02:53 Room Air Code Status & VTE Plan VTE Prophylaxis Plan VTE Prophylaxis will be ordered: Yes
--- NOTE | 2022-03-23 11:34 | Cardiology Progress Note ---
Date of Service March 23, 2022 Assessment & Plan (1) Abnormal finding on EKG: (2) Encounter for pre-operative examination: (3) HTN (hypertension): (4) DELMY on CPAP: (5) Spinal stenosis, lumbar region with neurogenic claudication: Plan Patient is a 66-year-old male presents through ER evaluation for severe unrelenting back pain with ongoing issues 1. Severe spinal stenosis with neurogenic claudication status post prior surgical intervention 2. Morbid obesity 3. Type 2 diabetes mellitus 4. Obstructive sleep apnea with prescribed CPAP, not in use 5. Coronary angiography 07/18/2018 for abnormal EKG mild to moderate luminal irregularities without obstruction. Report on [facility] chart 08/19/2018 (outside information), date corrected in history 6. Abnormal EKG with poor R wave progression across the anterior leads Patient personally seen and examined. EKG abnormal but not significantly changed from 2019, performed prior to coronary angiography for further assessment. As above no obstructive disease discerned. Patient denies any anginal complaints. No history of valvular heart disease congestive heart failure or arrhythmia. Prior to back injury function capacity well above 5 METS No prior difficulties with anesthesia Plan: Echocardiogram reviewed. Normal overall LV systolic function. No valvular disease of significance. Operative risks increased secondary to underlying morbidities including morbid obesity and obstructive sleep apnea No indications for additional cardiac testing Blood pressure elevated in the setting of pain. Antihypertensives held in preoperative setting. Admission and Anticipated Discharge Date Admission Date: March 22, 2022 Subjective Patient seen and examined. No cardiac complaints. Sitting upright due to chronic back pain. Echocardiogram reviewed this morning with no wall motion abnormalities noted. Review of Systems Review of Systems: All systems reviewed & are unremarkable except as noted in Subjective Physical Exam Constitutional: WD/WN, vitals as above + morbidly obese Eyes: PERRL, conjunctivae normal, anicteric sclerae ENMT: external ear and nose normal, oropharynx normal Neck: trachea midline, no thyromegaly Respiratory: normal respiratory effort, lungs clear to auscultation Cardiovascular: RRR, no murmur, no edema Vessels: no JVD Extremities: + edema (1-2+) Gastrointestinal (Abdomen): normal bowel sounds, soft, nontender, no hepatosplenomegaly Musculoskeletal: Head/Neck/Chest: + head abnormal to inspection, normocephalic and head atraumatic Results & Data ([facility]) Vital Signs (Past 12 Hours) Vital Signs Temp Pulse Pulse Pulse Resp BP Pulse Ox 03/23/22 10:50 36.7 C 99 H 20 95 03/23/22 08:01 86 03/23/22 07:50 36.7 C 87 20 173/77 H 94 03/23/22 03:30 80 03/23/22 02:53 36.7 C 88 20 155/88 H 92 O2 Del Method 03/23/22 10:50 Room Air 03/23/22 08:01 03/23/22 07:50 Room Air 03/23/22 03:30 03/23/22 02:53 Room Air Laboratory Results Laboratory Results - last 24 hr 03/22/22 03/22/22 03/22/22 10:30 11:49 11:49 WBC RBC Hgb Hct MCV MCH MCHC RDW Std Deviation RDW Coeff of Balwinder Plt Count MPV Immature Gran % (Auto) Neut % (Auto) Lymph % (Auto) [place] % (Auto) Eos % (Auto) Baso % (Auto) Neut # (Auto) Lymph # (Auto) [place] # (Auto) Eos # (Auto) Baso # (Auto) Immature Gran # (Auto) Plt Count ,Citrate 221 PT INR Sodium Potassium Chloride Carbon Dioxide Anion Gap BUN Creatinine Est Cr Clr Drug Dosing Est GFR ( Amer) Est GFR (Non-Af Amer) BUN/Creatinine Ratio Glucose POC Glucose Estimat Average Glucose 183 Hemoglobin A1c 8.0 H Calcium Phosphorus Magnesium Troponin I High Sens 8.1 Urine Color Urine Appearance Urine pH Ur Specific [place] Urine Protein Urine Glucose (UA) Urine Ketones Urine Blood Urine Nitrite Urine Bilirubin Urine Urobilinogen Ur Leukocyte Esterase 03/22/22 03/22/22 03/22/22 12:15 16:19 20:34 WBC RBC Hgb Hct MCV MCH MCHC RDW Std Deviation RDW Coeff of Balwinder Plt Count MPV Immature Gran % (Auto) Neut % (Auto) Lymph % (Auto) [place] % (Auto) Eos % (Auto) Baso % (Auto) Neut # (Auto) Lymph # (Auto) [place] # (Auto) Eos # (Auto) Baso # (Auto) Immature Gran # (Auto) Plt Count ,Citrate PT INR Sodium Potassium Chloride Carbon Dioxide Anion Gap BUN Creatinine Est Cr Clr Drug Dosing Est GFR ( Amer) Est GFR (Non-Af Amer) BUN/Creatinine Ratio Glucose POC Glucose 229 H 116 H Estimat Average Glucose Hemoglobin A1c Calcium Phosphorus Magnesium Troponin I High Sens Urine Color [place] Urine Appearance Clear Urine pH 5.0 Ur Specific [place] 1.012 Urine Protein Negative Urine Glucose (UA) 3+ H Urine Ketones Negative Urine Blood Negative Urine Nitrite Negative Urine Bilirubin Negative Urine Urobilinogen Negative Ur Leukocyte Esterase Negative 03/23/22 03/23/22 03/23/22 06:04 07:48 07:48 WBC 10.01 RBC 4.79 Hgb 14.8 Hct 42.9 MCV 89.6 MCH 30.9 MCHC 34.5 RDW Std Deviation 39.6 RDW Coeff of Balwinder 12.1 Plt Count MPV Immature Gran % (Auto) 1.0 Neut % (Auto) 58.8 Lymph % (Auto) 26.1 [place] % (Auto) 7.6 Eos % (Auto) 5.5 Baso % (Auto) 1.0 Neut # (Auto) 5.89 Lymph # (Auto) 2.61 [place] # (Auto) 0.76 Eos # (Auto) 0.55 H Baso # (Auto) 0.10 Immature Gran # (Auto) 0.10 H Plt Count ,Citrate PT 10.7 INR 1.0 Sodium Potassium Chloride Carbon Dioxide Anion Gap BUN Creatinine Est Cr Clr Drug Dosing Est GFR ( Amer) Est GFR (Non-Af Amer) BUN/Creatinine Ratio Glucose POC Glucose 178 H Estimat Average Glucose Hemoglobin A1c Calcium Phosphorus Magnesium Troponin I High Sens Urine Color Urine Appearance Urine pH Ur Specific [place] Urine Protein Urine Glucose (UA) Urine Ketones Urine Blood Urine Nitrite Urine Bilirubin Urine Urobilinogen Ur Leukocyte Esterase 03/23/22 03/23/22 07:48 10:55 WBC RBC Hgb Hct MCV MCH MCHC RDW Std Deviation RDW Coeff of Balwinder Plt Count MPV Immature Gran % (Auto) Neut % (Auto) Lymph % (Auto) [place] % (Auto) Eos % (Auto) Baso % (Auto) Neut # (Auto) Lymph # (Auto) [place] # (Auto) Eos # (Auto) Baso # (Auto) Immature Gran # (Auto) Plt Count ,Citrate PT INR Sodium 140 Potassium 4.1 Chloride 102 Carbon Dioxide 27 Anion Gap 11 BUN 23 Creatinine 1.26 Est Cr Clr Drug Dosing 74.3 Est GFR ( Amer) 68.4 Est GFR (Non-Af Amer) 59.0 BUN/Creatinine Ratio 18.3 Glucose 127 H POC Glucose 118 H Estimat Average Glucose Hemoglobin A1c Calcium 9.9 Phosphorus 3.7 Magnesium 2.3 Troponin I High Sens Urine Color Urine Appearance Urine pH Ur Specific [place] Urine Protein Urine Glucose (UA) Urine Ketones Urine Blood Urine Nitrite Urine Bilirubin Urine Urobilinogen Ur Leukocyte Esterase
[2022-03-23] MEDS ORDERED: BUPIVACAINE/EPINEPHRINE 0.25% 1:200,000 30 ML VIAL ONE (11:51)
[2022-03-23] MEDS ORDERED: ceFAZolin 330 MG/ML 1 GM VIAL ONE (11:52)
--- NOTE | 2022-03-23 12:00 | Anesthesiology Consultation ---
Date of Service March 23, 2022 Assessment & Plan (1) Encounter for pre-operative examination: Chart Review Chart Review: Acceptable Risk for Surgery History Surgery Operation Date: 03/23/22 09:40 Proposed Procedures p L2-L4 Decompression Fusion, L1-L2 and L4-S1 Hardware Removal - Serge Gay DO Height/Weight Height: 5 ft 7 in Weight: 128.6 kg Allergies Allergy/AdvReac Type Severity Reaction Status Date / Time No Known Allergies Allergy Verified 08/24/18 10:40 Medications Home Medications Medication Instructions Recorded Confirmed Last Taken empagliflozin 25 mg tablet 25 mg PO QAM 05/11/18 03/22/22 03/20/22 (Jardiance) furosemide 40 mg tablet 40 mg PO QAM 05/11/18 03/22/22 03/22/22 glimepiride 2 mg tablet 4 mg PO BID 05/11/18 03/22/22 03/22/22 metformin 1,000 mg tablet 1,000 mg PO BID 05/11/18 03/22/22 03/20/22 potassium chloride 10 mEq 10 meq PO BID 05/11/18 03/22/22 03/22/22 capsule,extended release semaglutide 0.25 mg or 0.5 mg (2 0.5 mg subcut WK 05/20/18 03/22/22 03/22/22 mg/1.5 mL) subcutaneous pen injector (Ozempic) tramadol 50 mg tablet 50 mg PO Q4H PRN Pain, Moderate 08/26/18 03/22/22 Unknown #30 tabs diclofenac sodium 75 mg 75 mg PO BID 03/22/22 03/22/22 03/22/22 tablet,delayed release gabapentin 300 mg capsule 300 mg PO TID 03/22/22 03/22/22 03/22/22 gemfibrozil 600 mg tablet 600 mg PO BID 03/22/22 03/22/22 03/22/22 hydrocodone 7.5 mg-acetaminophen 1 tab PO Q6 PRN Severe Pain (Scale 03/22/22 03/22/22 Unknown 325 mg tablet Score 7-10) losartan 100 mg tablet 100 mg PO DAILY 03/22/22 03/22/22 03/22/22 Active Medications Generic Name Dose Route Start Last Admin Trade Name Freq PRN Reason Stop Dose Admin Docusate Sodium 100 mg 03/22/22 21:00 03/23/22 08:43 Docusate Sodium 100 Mg Cap PO 04/21/22 20:59 100 mg BID DIANE Administration Gabapentin 300 mg 03/22/22 15:00 03/23/22 08:43 Gabapentin 300 Mg Cap PO 04/21/22 14:59 300 mg TID DIANE Administration Gemfibrozil 600 mg 03/22/22 21:00 03/23/22 08:43 Gemfibrozil 600 Mg Tab PO 04/21/22 20:59 600 mg BID DIANE Administration Insulin Aspart 0 units 03/23/22 06:45 03/23/22 08:42 Insulin Aspart Per Unit SC 04/22/22 06:44 2 units Q6 DIANE Administration Protocol Insulin Glargine 0 units 03/23/22 09:00 03/23/22 08:43 Lantus Per Unit Charge SQ 04/21/22 20:59 15 units BID DIANE Administration Protocol Oxycodone HCl 5 mg 03/22/22 14:14 03/23/22 08:45 Oxycodone Hcl Ir 5 Mg Tab (Immediate Release) PO 04/05/22 14:13 5 mg Q4H PRN Administration Moderate Pain NPO Date Last Intake of Fluids: 03/22/22 Time Last Intake of Fluids: 22:00 Date Last Intake of Solids: 03/22/22 Time Last Intake of Solids: 16:00 Past Medical History Medical History DM type 2 (diabetes mellitus, type 2) NIDDM DVT (deep venous thrombosis) Lower extremity--Postoperative HLD (hyperlipidemia) HTN (hypertension) 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 Hx of colonoscopy S/P left knee arthroscopy Social History Smoking Status: Former smoker tobacco type: cigarettes Hx Alcohol Use: No Alcohol type: beer alcohol intake frequency: holidays/special occasions only Hx Substance Use: No substance use type: does not use Physical Exam Vital Signs Last Vital Signs Temp 36.7 C 03/23/22 10:50 Pulse 99 H 03/23/22 10:50 Resp 20 03/23/22 10:50 BP 173/77 H 03/23/22 07:50 Pulse Ox 95 03/23/22 10:50 O2 Del Method 03/23/22 10:50 Testing Laboratory Results 03/23/22 07:48 03/23/22 07:48 PT 10.7 Seconds (9.0-12.0) 03/23/22 07:48 INR 1.0 (0.9-1.1) 03/23/22 07:48 APTT 25.6 Seconds (21.0-31.0) 03/22/22 10:30 Hemoglobin A1c 8.0 % (4.5-5.6) H 03/22/22 10:30 Urine Color [place] 03/22/22 12:15 Urine Appearance Clear (Clear) 03/22/22 12:15 Urine pH 5.0 (4.5-7.5) 03/22/22 12:15 Ur Specific [place] 1.012 (1.000-1.030) 03/22/22 12:15 Urine Protein Negative (Negative) 03/22/22 12:15 Urine Glucose (UA) 3+ (Negative) H 03/22/22 12:15 Urine Ketones Negative (Negative) 03/22/22 12:15 Urine Nitrite Negative (Negative) 03/22/22 12:15 Ur Leukocyte Esterase Negative (Negative) 03/22/22 12:15 03/23/22 03/23/22 10:55 06:04 POC Glucose 118 H 178 H Electrocardiogram Date: 03/22/22 Findings: + NSR @ (88) and + poor R wave progression 1st degree AV block Chest X-Ray Date: 02/13/22 Findings: + NAD Echocardiogram Date: 03/23/22 EF: 55-60% LV Function: normal Valvular Disease: + no significant valvular disease
[2022-03-23] MEDS ORDERED: HYDROmorphone INJ 1 MG/ML SYRINGE IV PRN ×2 (12:02→16:33)
[2022-03-23] MEDS ORDERED: PROMETHAZINE HCL 6.25 MG in SODIUM CHLORIDE 0.9% 50 ML IV PRN (12:02)
[2022-03-23] MEDS ORDERED: ATROPINE SULFATE 0.1 MG/ML 10ML SYR IV PRN (12:02)
[2022-03-23] MEDS ORDERED: ONDANSETRON INJ 2 MG/ML 2 ML VIAL IV PRN ×2 (12:02→16:33)
[2022-03-23] MEDS ORDERED: FLOSEAL HEMOSTATIC MATRIX 10ML TOP ONE (12:40)
[2022-03-23] MEDS ORDERED: HYDROmorphone INJ 2 MG/ML SYR/VIAL ONE (12:47)
[2022-03-23] MEDS ORDERED: ePHEDrine sulfate 50 MG/ML SYR ONE (12:48)
[2022-03-23] MEDS ORDERED: NEOSTIGMINE METHYLSULFATE 1 MG/ML 10ML VIAL ONE (12:48)
[2022-03-23] MEDS ORDERED: GLYCOPYRROLATE 0.2 MG/ML VIAL ONE (12:48)
[2022-03-23] MEDS ORDERED: DEXAMETHASONE SOD INJ 4 MG/ML VIAL ONE (12:48)
[2022-03-23] MEDS ORDERED: PHENYLEPHRINE 100MCG/ML 5ML SYR ONE (12:48)
[2022-03-23] MEDS ORDERED: LARYING-O-JET KIT (LTA) ONE (12:48)
[2022-03-23] MEDS ORDERED: ONDANSETRON INJ 2 MG/ML 2 ML VIAL ONE (12:48)
[2022-03-23] MEDS ORDERED: ROCURONIUM BROMIDE 10 MG/ML 5 ML VIAL IV ONE (12:48)
[2022-03-23] MEDS ORDERED: PROPOFOL IV EMULSION 10 MG/ML 20 ML VIAL IV ONE (12:48)
[2022-03-23] MEDS ORDERED: LIDOCAINE 2% MPF LOCAL 5 ML VIAL INFIL ONE (12:48)
--- NOTE | 2022-03-23 14:36 | Operative Report ---
Post Operative Report Pre & Post Diagnosis Operation Date: 03/23/22 09:40 Pre-Op Diagnosis: Spinal stenosis, lumbar region with neurogenic claudication Morbid obesity Post-Op Diagnosis: Same I identified the patient and participated in the time-out.: Yes Procedure Operation Date: 03/23/22 09:40 Actual Procedures #1 removal of posterior instrumentation L1-L2 L4-S1. #2 exploration of fusion. #3 lumbar decompression with bilateral medial facetectomies and foraminotomies L2-L3 L3-L4 per #4 posterior spinal fusion L2-L4. #5 placement posterior segme ntal instrumentation L1-S1 utilizing the previous screws at L4-L5 and S1. #6 interbody fusion L2-L3. #7 placement of Spira 15 x 26 mm cage at L2-L3 with supplemental bone cement in the interbody space. #6 8 placement locally harvested morselized autograft and posterior gutters. #9 placement of I factor, the V toss interbody space and posterior gutters. Surgeon Serge Gay, DO Shipping Coordinator Toyin Esqueda Estimated Blood Loss 400 Findings See Below The patient is 5 feet 7 inches tall weighing over 128 kg with a BMI in excess of 44. The patient body habitus did contribute significant technical difficulty required deepest retractors and longer instruments in order to perform his procedure. This had at least 50% increased operative time. Specimens None Indications This is a 66-year-old male that presents with above-mentioned diagnosis after failed course of nonoperative care having marked significant decline in status he is here for urgent decompression fusion. Description of Procedure Patient was met with identified informed consent obtained. Patient was then taken to the operative suite underwent a patient placed in a prone position on the deck table top Matthew frame. All bony prominences well-padded eyes inspected to ensure no external pressure placed upon the. At this point the posterior thoracolumbar spine was prepped and draped in normal sterile fashion. Utilizing the previous incision site sharp dissection with assistance of Bovie cautery was performed down to and exposing the instrumentation at L1-L2 the lamina at L1-2 and L3 and instrumentation L4-L5 and S1 levels bilaterally. Then proceeded move the hardware at L1-L2 without difficulty. It was a removed end caps and rods from the hardware at L4-L5 and S1 levels. However the screws were unable to be removed without excessive blood loss. Subsequently I elected to maintain the screws as there is excellent bony fusion in these areas. I then performed a complete laminectomy of L3 and L4 including bilateral medial facetectomies and foraminotomies addressing severe spinal stenosis. Pedicle screws were then reinserted and L1-L2 and due to screws in L3. Proper sized osvaldo was then contoured and placed. By way the transforaminal approach on the right a complete discectomy of L2-L3 was performed endplates curetted to subcortical bleeding bone. I did note significant deficit to the anterior aspect of the disc base as there was a wedge deformity of involving the inferior endplate of L 2. Subsequently I was able to place a 15 x 26 mm spiral cage with I factor in the posterior aspect of the disc space however the anterior void was significant and I elected to fill that with bony cement to help supplement the anterior column in light of the patient's body habitus and risk of collapse. After this was complete the rods were locked into final position. Transverse processes of L2-L3-L4 burred to subcortically bone. I factor model V toss and locally harvested morselized autograft was placed in the posterior gutters. 15 round DOUG drain inserted. Incision was then closed with 1 Vicryl in the fascia 2-0 Vicryl subcutaneously and 4 Monocryl for final skin closure. Steri-Strip sterile dressings placed. Patient was then awakened and taken to PACU in stable condition. Please note spinal cord monitoring was utilized at the procedure no changes noted. Lastly Toyin Esqueda was present at the entire surgery and while the patient positioning complex portions of the surgery and final skin closure. I attest to the content of the Intraoperative Record and any orders documented therein. Any exceptions are noted below.
--- NOTE | 2022-03-23 14:43 | Fluoroscopy Report ---
FL lumbar spine 2-3V CLINICAL HISTORY: L2-4 DFI TECHNIQUE: 4 views were obtained with the C-arm in the OR with the above procedure. Total fluoroscopy time was 48 seconds. Comparison: Comparison is made to fluoroscopy of the lumbar spine 08/24/2018 FINDINGS/IMPRESSION: Intraoperative images were obtained of L2-L4 decompression and fusion. Cement in sertion is noted. Please correlate with intraoperative fluoroscopy and operative report. ACT 112: Negative or not required by law. Electronically signed by: Howard Rogers M.D. 03/23/2022 2:42 PM
--- NOTE | 2022-03-23 15:39 | Anesthesiology Progress Note ---
Date of Service March 23, 2022 Anesthesia Post Procedure Vital Signs Vital Signs: Temp Pulse Pulse Pulse Resp BP Pulse Ox 03/23/22 15:30 91 H 18 148/72 H 96 03/23/22 15:20 92 H 20 97/51 L 96 03/23/22 15:10 95 H 20 105/59 L 99 03/23/22 14:53 37.0 C 99 H 20 158/83 H 95 03/23/22 10:50 36.7 C 99 H 20 95 03/23/22 08:01 86 03/23/22 07:50 36.7 C 87 20 173/77 H 94 03/23/22 03:30 80 03/23/22 02:53 36.7 C 88 20 155/88 H 92 03/22/22 23:21 36.4 C L 75 20 134/78 90 03/22/22 19:22 36.6 C 87 18 113/71 93 03/22/22 16:23 86 O2 Del Method O2 Flow Rate 03/23/22 15:30 Nasal Cannula 4 03/23/22 15:20 Nasal Cannula 4 03/23/22 15:10 Oxymask 8 03/23/22 14:53 Oxymask 8 03/23/22 10:50 Room Air 03/23/22 08:01 03/23/22 07:50 Room Air 03/23/22 03:30 03/23/22 02:53 Room Air 03/22/22 23:21 Room Air 03/22/22 19:22 Room Air 03/22/22 16:23 Pain Intensity Back: Pain Intensity: 10 Transfer of Care Handoff Completed per policy Notes Mental Status: alert / awake / arousable and participated in evaluation Patient Amnestic to Procedure: Yes Nausea / Vomiting: adequately controlled Pain: adequately controlled Airway Patency, RR, SpO2: stable & adequate BP & HR: stable & adequate Hydration State: stable & adequate Anesthetic Complications: no major complications apparent and Pt Satisfied with anesthetic care
[2022-03-23] MEDS ORDERED: LORazepam 0.5 MG TAB PO PRN (16:33)
[2022-03-23] MEDS ORDERED: diphenhydrAMINE Capsule 25 MG CAP PO PRN (16:33)
[2022-03-23] MEDS ORDERED: METOCLOPRAMIDE HCL INJ 5 MG/ML 2 ML VIAL IV PRN (16:33)
[2022-03-23] MEDS ORDERED: ACETAMINOPHEN 1,000 MG/100 ML VIAL IV PRN (16:33)
[2022-03-23] MEDS ORDERED: bisacodyL 10 MG SUPP PR PRN (16:33)
[2022-03-23] MEDS ORDERED: ONDANSETRON 4 MG OD TAB PO PRN (16:33)
[2022-03-23] MEDS ORDERED: PROMETHAZINE HCL 12.5 MG in SODIUM CHLORIDE 0.9% 50 ML IV PRN (16:33)
[2022-03-23] MEDS ORDERED: MAGNESIUM HYDROXIDE SUSP 30 ML UDC PO PRN (16:33)
[2022-03-23] MEDS ORDERED: hydrOXYzine HCl 25 MG TAB PO PRN (16:33)
[2022-03-23] MEDS ORDERED: ALUMINUM/MAGNESIUM SUSP 30 ML UDC PO PRN (16:33)
[2022-03-23] MEDS ORDERED: LORazepam 0.5 MG in SYRINGE 0 ML IV PRN (16:33)
[2022-03-23] MEDS ORDERED: SOD PHOSPHATE/SOD BIPHOSPHATE ENEMA 132 ML BTL PR PRN (16:33)
[2022-03-23] MEDS ORDERED: NALOXONE HCL 0.4 MG/1 ML VIAL/CARP IV PRN (16:33)
[2022-03-23] MEDS ORDERED: FAMOTIDINE 20 MG TAB PO PRN (16:33)
[2022-03-23] MEDS ORDERED: ACETAMINOPHEN 500 MG TAB PO PRN (16:33)
[2022-03-23] MEDS: SODIUM CHLORIDE 0.9% 1000ML 1,000 ML IV SCH (17:03)
[2022-03-23] MEDS: ceFAZolin 2000MG 2,000 MG/15 ML SYR IV SCH (19:54)
[2022-03-23] MEDS: DOCUSATE SODIUM/SENNA 50/8.6MG TAB PO SCH (20:01)
[2022-03-24] MEDS: SODIUM CHLORIDE 0.9% 1000ML 1,000 ML IV SCH ×3 (01:41→12:49)
[2022-03-24] MEDS: ceFAZolin 2000MG 2,000 MG/15 ML SYR IV SCH (04:42)
[2022-03-24] MEDS: POLYETHYLENE (MIRALAX) 17 GM PACK PO SCH ×4 (05:28→23:21)
[2022-03-24 07:00] LABS: Hematocrit (blood only) 35.4 % (40.1-51.0); Hemoglobin 12.3 g/dl (14.0-18.0); Mean Corpuscular Hemoglobin 31.3 pg (25.0-34.0); Mean Corpuscular Hgb Conc 34.7 g/dL (32.0-36.0); Mean Corpuscular Volume 90.1 fL (80.0-100.0); RDW Coefficient of Variation 11.9 % (11.5-14.5); RDW Standard Deviation 39.4 fL (36.4-46.3); Red Blood Count 3.93 M/uL (4.63-6.08); White Blood Count 12.87 K/ul (4.8-10.8)
[2022-03-24 07:13] LABS: Basophils # (auto) 0.03 K/uL (0-0.2); Basophils % (auto) 0.2 %; Eosinophils # (auto) 0.07 K/uL (0-0.50); Eosinophils % (auto) 0.5 %; Immature Granulocytes # (auto) 0.12 K/uL (0.00-0.02); Immature Granulocytes % (auto) 0.9 %; Lymphocytes # (auto) 2.07 K/uL (1.2-3.4); Lymphocytes % (auto) 16.1 %; Monocytes # (auto) 1.05 K/uL (0.24-0.82); Monocytes % (auto) 8.2 %; Neutrophils # (auto) 9.53 K/uL (1.4-6.5); Neutrophils % (auto) 74.1 %
[2022-03-24 07:18] LABS: Prothrombin Time 10.9 Seconds (9.0-12.0)
[2022-03-24 07:20] LABS: Albumin Globulin Ratio 1.3 (0.9-2); Albumin Level 3.7 gm/dl (3.4-5.0); BUN Creatinine Ratio 18.2 (10-20); Bilirubin,Total 0.5 mg/dl (0.2-1.0); Calcium 8.6 mg/dl (8.5-10.1); Creatinine Clr Calc Pharmacy 94.6 ml/min; Est GFR (African American) 91.6 ml/min; Globulin 2.8 gm/dl (2.5-4.0); Magnesium 2.2 mg/dl (1.7-2.4); Phosphorus 3.2 mg/dl (2.5-4.9); Total Protein 6.5 gm/dl (6.0-8.3)
[2022-03-24] MEDS ORDERED: LANTUS PER UNIT CHARGE SQ SCH ×2 (09:00→21:00)
[2022-03-24] MEDS ORDERED: LOSARTAN POTASSIUM 50 MG TAB PO SCH (09:00)
[2022-03-24] MEDS: INSULIN ASPART PER UNIT SC SCH ×4 (09:16→20:48)
[2022-03-24] MEDS: GABAPENTIN 300 MG CAP PO SCH ×3 (09:23→20:46)
[2022-03-24] MEDS: gemfibroziL 600 MG TAB PO SCH ×2 (09:24→20:47)
--- NOTE | 2022-03-24 09:48 | Pharmacy Report ---
Pharmacy Glycemic Short Note 2 - Date of Service March 24, 2022 - Glycemic Short BSG Results (Last 24 hours): 03/23/22 03/23/22 03/23/22 10:55 14:55 17:28 Glucose POC Glucose 118 H 125 H 174 H 03/23/22 03/24/22 03/24/22 20:51 05:46 08:03 Glucose 152 H POC Glucose 249 H 140 H OUTPATIENT ANTIDIABETIC REGIMEN: * Metformin 1000 mg PO BIDM * Glimepiride 4 mg PO BIDM * Jardiance 25 mg PO AM * Ozempic 0.5 mg SC every Wednesday * HbA1c = 8.0% (03/22/22) ASSESSMENT: 03/24/22: * POD #1 s/p L2-L4 decompression fusion * Received 8 mg IV dexamethasone in OR, no steroids ongoing * BSGs elevated postoperatively, 174 and 249 mg/dL with fasting BSG of 140 mg/dL this morning * Will keep tight Novolog coverage this morning and loosen at lunchtime 03/23/22: * 66 yo M admitted last evening secondary to preoperative clearance by cardiology prior to surgery with Dr. Gay today. History of T2DM managed without insulin at home, just orals. A1c is elevated given age and comorbidities. Currently NPO for surgery today. * BSG upon arrival to floor last evening was 229 mg/dL. Given 12 units of Novolog with meal, and BSG dropped to 116 mg/dL at bedtime. * Will loosen Novolog parameters today. * Fasting BSG still elevated at 178 mg/dL this AM. * Will increase basal scale slightly despite patient being NPO. Basal insulin does not peak and this should control BSG throughout surgery until he is able to eat postoperatively. * May need to back off basal insulin this evening pending BSGs. PLAN FOR INPATIENT GLYCEMIC CONTROL: * Hold outpatient oral diabetes medications * Basal insulin * Lantus 15 units SC this morning * Lantus 15-20 units SC HS * Bolus insulin * NovoLog per scale ACHS or Q6hrs while NPO * Goal Range: Low 110 mg/dL - High 140 mg/dL * Correction Factor: 20 mg/dL/unit * Nutritional / Prandial insulin per carb ratio of 1 unit per 6 grams CHO consumed
--- NOTE | 2022-03-24 11:10 | Orthopedic Progress Note ---
Date of Service March 24, 2022 Assessment & Plan (1) Lumbar back pain with radiculopathy affecting left lower extremity: Plan: At this time we will continue physical therapy monitor his DOUG operatively discharge over next few days. Admission and Anticipated Discharge Date Admission Date: March 22, 2022 Subjective Patient's back pain is controlled leg symptoms markedly improved. He has already been up and ambulating this morning. Physical Exam Physical Exam: Patient is in the chair at the bedside. He is comfortable. Is good strength testing. Results & Data ([facility]) Vital Signs (Past 12 Hours) Vital Signs Temp Pulse Resp BP Pulse Ox O2 Del Method O2 Flow Rate 03/24/22 07:54 36.6 C 90 16 127/78 95 Room Air 03/24/22 06:00 37.1 C 80 18 122/62 98 Nasal Cannula 3 03/24/22 02:00 36.9 C 84 18 104/65 98 Nasal Cannula 3
--- NOTE | 2022-03-24 12:51 | Hospitalist Progress Note ---
Date of Service March 24, 2022 Assessment & Plan (1) Lumbar back pain with radiculopathy affecting left lower extremity: Plan: - POD#1 for lumbar decompression and fusion surgery - History of 2 prior lumbar surgeries - Increasing lumbar back pain with radiation to left groin and left leg with left leg paresthesias. - scheduled for Hardware removal and lumbar decompression and fusion surgery planned 03/23/[address] Gay - Hold home diclofenac, tramadol, hydrocodone - Acetaminophen, oxycodone, Dilaudid as needed pain - Bowel regimen - Orthospine consult - PT/OT (2) Abnormal finding on EKG: Plan: - Preop EKG from 02/13/2022: Sinus rhythm, rate 91, borderline criteria for anterior lateral infarct. - Anesthesia had recommended cardiac clearance prior to undergoing surgery - EKG: Sinus rhythm, poor R wave progression - Patient denies any chest pain, shortness of breath, exertional chest pain or shortness of breath - Recently sedentary secondary to back pain, prior was able to walk 100 yards without shortness of breath or chest pain - Troponin negative - Echo wnl - Cardiology consult for assistance in pre-op cardiac evaluation - no additional testing, can proceed to surgery per Cardiology (3) DM type 2 (diabetes mellitus, type 2): Plan: - A1c: 8% 02/2022 - Hold home glycemic agents - Basal bolus insulin per protocol (4) HTN (hypertension): Plan: - Patient's BP elevated in ER likely secondary to pain - Monitor - Patient had losartan today - continue home medications (5) HLD (hyperlipidemia): Plan: - Continue gemfibrozil (6) DELMY on CPAP: Plan: - Continue CPAP at bedtime (7) Lower extremity edema: Plan: - recent bilateral lower extremity edema from keep legs dependent - Patient denies known history of CHF - started on Lasix for LE edema as OP - hold Lasix - may not need Lasix going forward as this is likely not helping LE edema as his edema/swelling is likely from dependent legs as patient unable to lie in bed due to back pain Plan DVT Prophylaxis: SCDs Full Code Dispo: Telemetry Follows with Dr Jose Luis Hamilton in [place], [place] for routine care Ross Waggoner MD Hospital Medicine Admission and Anticipated Discharge Date Admission Date: March 22, 2022 Subjective Patient with obesity and DM admitted for lumbar surgery with ortho. Cardiology consulted for pre-op, ok to proceed for surgery without further testing. TTE wnl, EF 60%. POD#1 for lumbar decompression and fusion. DOUG drains in place. PT/OT. Patient says back is sore but feeling better, able to sit back in his chair now and walked with PT. Denies chest pain, shortness of breath, n/v/d, abdominal pain, cough, dysuria. Review of Systems Review of Systems: All systems reviewed & are unremarkable except as noted in Subjective Physical Exam Physical Exam: General: NAD, obese, pleasant male Head: normocephalic, atraumatic Eyes: conjunctiva non-injected, anicteric ENT: normal inspection external ears, nose, mucous membranes moist Neck: supple, trachea midline Lungs: clear, no respiratory distress, no wheezing/rhonchi/rales CV: RRR, no murmur, tense edema of bilateral LEs Abd: protuberant, normal BS, soft, non-tender Ext: no cyanosis, no calf tenderness; bilateral pedal pushes and pulls intact, sensation to light touch intact Neuro: A&O x 3, no focal deficits noted, normal affect Skin: warm, dry Results & Data Results & Data ([facility]) Vital Signs (Past 12 Hours) Vital Signs Temp Pulse Resp BP Pulse Ox O2 Del Method O2 Flow Rate 03/24/22 11:25 37.5 C 92 H 18 109/70 94 Room Air 03/24/22 07:54 36.6 C 90 16 127/78 95 Room Air 03/24/22 06:00 37.1 C 80 18 122/62 98 Nasal Cannula 3 03/24/22 02:00 36.9 C 84 18 104/65 98 Nasal Cannula 3 Diagnostic Findings Laboratory Results WBC 12.87 K/ul (4.8-10.8) H 03/24/22 05:46 RBC 3.93 M/uL (4.63-6.08) L 03/24/22 05:46 Hgb 12.3 g/dl (14.0-18.0) L 03/24/22 05:46 Hct 35.4 % (40.1-51.0) L 03/24/22 05:46 MCV 90.1 fL (80.0-100.0) 03/24/22 05:46 MCH 31.3 pg (25.0-34.0) 03/24/22 05:46 MCHC 34.7 g/dL (32.0-36.0) 03/24/22 05:46 RDW Std Deviation 39.4 fL (36.4-46.3) 03/24/22 05:46 RDW Coeff of Balwinder 11.9 % (11.5-14.5) 03/24/22 05:46 Plt Count K/uL (130-400) 03/24/22 05:46 MPV fL (9.4-12.4) 03/24/22 05:46 Immature Gran % (Auto) 0.9 % 03/24/22 05:46 Neut % (Auto) 74.1 % 03/24/22 05:46 Lymph % (Auto) 16.1 % 03/24/22 05:46 [place] % (Auto) 8.2 % 03/24/22 05:46 Eos % (Auto) 0.5 % 03/24/22 05:46 Baso % (Auto) 0.2 % 03/24/22 05:46 Neut # (Auto) 9.53 K/uL (1.4-6.5) H 03/24/22 05:46 Lymph # (Auto) 2.07 K/uL (1.2-3.4) 03/24/22 05:46 [place] # (Auto) 1.05 K/uL (0.24-0.82) H 03/24/22 05:46 Eos # (Auto) 0.07 K/uL (0-0.50) 03/24/22 05:46 Baso # (Auto) 0.03 K/uL (0-0.2) 03/24/22 05:46 Immature Gran # (Auto) 0.12 K/uL (0.00-0.02) H 03/24/22 05:46 Plt Count ,Citrate 169 K/uL (130-400) 03/24/22 05:46 PT 10.9 Seconds (9.0-12.0) 03/24/22 05:46 INR 1.0 (0.9-1.1) 03/24/22 05:46 APTT 25.6 Seconds (21.0-31.0) 03/22/22 10:30 PTT Ratio 0.9 03/22/22 10:30 Sodium 140 mmol/L (136-145) 03/24/22 05:46 Potassium 4.0 mmol/L (3.5-5.1) 03/24/22 05:46 Chloride 105 mmol/L (98-107) 03/24/22 05:46 Carbon Dioxide 27 mmol/L (21-32) 03/24/22 05:46 Anion Gap 8 (3-11) 03/24/22 05:46 BUN 18 mg/dl (6-23) 03/24/22 05:46 Creatinine 0.99 mg/dl (0.6-1.4) 03/24/22 05:46 Est Cr Clr Drug Dosing 94.6 ml/min 03/24/22 05:46 Est GFR ( Amer) 91.6 ml/min 03/24/22 05:46 Est GFR (Non-Af Amer) 79.0 ml/min 03/24/22 05:46 BUN/Creatinine Ratio 18.2 (10-20) 03/24/22 05:46 Glucose 152 mg/dl (70-99(Fasting)) H 03/24/22 05:46 POC Glucose 156 mg/dl (70-99) H 03/24/22 11:53 Estimat Average Glucose 183 mg/dl 03/22/22 10:30 Hemoglobin A1c 8.0 % (4.5-5.6) H 03/22/22 10:30 Calcium 8.6 mg/dl (8.5-10.1) 03/24/22 05:46 Phosphorus 3.2 mg/dl (2.5-4.9) 03/24/22 05:46 Magnesium 2.2 mg/dl (1.7-2.4) 03/24/22 05:46 Total Bilirubin 0.5 mg/dl (0.2-1.0) 03/24/22 05:46 AST 13 U/L (13-39) 03/24/22 05:46 ALT 17 U/L (7-52) 03/24/22 05:46 Alkaline Phosphatase 93 U/L (34-104) 03/24/22 05:46 Troponin I High Sens 8.1 pg/ml (0-20) 03/22/22 11:49 Total Protein 6.5 gm/dl (6.0-8.3) 03/24/22 05:46 Albumin 3.7 gm/dl (3.4-5.0) 03/24/22 05:46 Globulin 2.8 gm/dl (2.5-4.0) 03/24/22 05:46 Albumin/Globulin Ratio 1.3 (0.9-2) 03/24/22 05:46 Urine Color [place] 03/22/22 12:15 Urine Appearance Clear (Clear) 03/22/22 12:15 Urine pH 5.0 (4.5-7.5) 03/22/22 12:15 Ur Specific [place] 1.012 (1.000-1.030) 03/22/22 12:15 Urine Protein Negative (Negative) 03/22/22 12:15 Urine Glucose (UA) 3+ (Negative) H 03/22/22 12:15 Urine Ketones Negative (Negative) 03/22/22 12:15 Urine Blood Negative (Negative) 03/22/22 12:15 Urine Nitrite Negative (Negative) 03/22/22 12:15 Urine Bilirubin Negative (Negative) 03/22/22 12:15 Urine Urobilinogen Negative (Negative) 03/22/22 12:15 Ur Leukocyte Esterase Negative (Negative) 03/22/22 12:15 SARS-CoV-2, RNA, NAAT NEGATIVE (NEGATIVE) 03/22/22 10:15 Medications Administered Current Inpatient Medications Acetaminophen (Acetaminophen 500 Mg Tab) 1,000 mg PO Q8H PRN PRN Reason: MILD Pain Scale 1,2,3 & Pre PT Stop: 04/22/22 16:32 Al Hydrox/Mg Hydrox/Simethicone (Aluminum/Magnesium Susp 30 Ml Udc) 30 ml PO Q6H PRN PRN Reason: Dyspepsia Stop: 04/22/22 16:32 Bisacodyl (Bisacodyl 10 Mg Supp) 10 mg MA DAILY PRN PRN Reason: Constipation Stop: 04/22/22 16:32 Dextrose (Dextrose 50% 50 Ml Syringe) 25 - 50 ml IV UD PRN; Protocol PRN Reason: Hypoglycemia Protocol Stop: 04/21/22 14:13 Diphenhydramine HCl (Diphenhydramine Capsule 25 Mg Cap) 25 mg PO Q6H PRN PRN Reason: Allergic Rhinitis/Insomnia Stop: 04/22/22 16:32 Famotidine (Famotidine 20 Mg Tab) 20 mg PO Q12H PRN PRN Reason: Dyspepsia Stop: 04/22/22 16:32 Gabapentin (Gabapentin 300 Mg Cap) 300 mg PO TID DIANE Stop: 04/21/22 14:59 Last Admin: 03/24/22 09:23 Dose: 300 mg Gemfibrozil (Gemfibrozil 600 Mg Tab) 600 mg PO BID DIANE Stop: 04/21/22 20:59 Last Admin: 03/24/22 09:24 Dose: 600 mg Glucagon (Glucagon For Inj 1 Mg Vial) 1 mg SQ UD PRN; Protocol PRN Reason: Hypoglycemia Protocol Stop: 04/21/22 14:13 Glucose (Glucose 40% Gel 15 Gm Tube) 15 - 30 gm PO UD PRN; Protocol PRN Reason: Hypoglycemia Protocol Stop: 04/21/22 14:13 Glucose (Glucose 10 Tab/Tube) 4 - 8 tab PO UD PRN; Protocol PRN Reason: Hypoglycemia Treatment Stop: 04/21/22 14:13 Hydromorphone HCl (Hydromorphone Inj 0.5 Mg/0.5 Ml Syr) 0.5 mg IV Q3H PRN PRN Reason: MODERATE Pain (Scale 4,5,6) & Pre PT Stop: 04/06/22 16:32 Hydromorphone HCl (Hydromorphone Inj 1 Mg/Ml Syringe) 1 mg IV Q3H PRN PRN Reason: SEVERE Pain (Scale 7,8,9,10) Stop: 04/06/22 16:32 Hydroxyzine HCl (Hydroxyzine Hcl 25 Mg Tab) 25 mg PO Q8H PRN PRN Reason: Anxiety Stop: 04/22/22 16:32 Acetaminophen (Ofirmev) 1,000 mg in 100 mls @ 400 mls/hr IV Q8H PRN PRN Reason: Pain Rating 1-3 & Pre PT Stop: 03/24/22 16:34 Lorazepam 0.5 mg/ Syringe 0.5 mls @ 2 mls/min IV Q8H PRN PRN Reason: Sedation/Anxiety Stop: 04/22/22 16:32 Promethazine HCl 12.5 mg/ (Sodium Chloride) 50.5 mls @ 202 mls/hr IV Q6H PRN PRN Reason: Nausea &/or Vomiting Stop: 04/22/22 16:32 Insulin Aspart (Insulin Aspart Per Unit) 0 units SC ACHS [facility]; Protocol Stop: 04/22/22 20:59 Last Admin: 03/24/22 09:16 Dose: 6 units Insulin Glargine (Lantus Per Unit Charge) 15 units SQ BID [facility]; Protocol Stop: 04/21/22 20:59 Last Admin: 03/24/22 09:17 Dose: 15 units Lorazepam (Lorazepam 0.5 Mg Tab) 0.5 mg PO Q8H PRN PRN Reason: Sedation/Anxiety Stop: 04/22/22 16:32 Losartan Potassium (Losartan Potassium 50 Mg Tab) 100 mg PO DAILY [facility] Stop: 04/23/22 08:59 Last Admin: 03/24/22 09:24 Dose: 100 mg Magnesium Hydroxide (Magnesium Hydroxide Susp 30 Ml Udc) 30 ml PO Q24H PRN PRN Reason: Constipation Stop: 04/22/22 16:32 Metoclopramide HCl (Metoclopramide Hcl Inj 5 Mg/Ml 2 Ml Vial) 10 mg IV Q6H PRN PRN Reason: Nausea &/or Vomiting Stop: 04/22/22 16:32 Miscellaneous (Carbohydrates For Hypoglycemia ) 15 - 30 gm PO UD PRN PRN Reason: Hypoglycemia Protocol Stop: 04/21/22 14:13 Miscellaneous Information (Pharmacy Glycemic Mgmt Consult) 1 each N/A UD PRN PRN Reason: Consult Stop: 04/21/22 16:55 Naloxone HCl (Naloxone Hcl 0.4 Mg/1 Ml Vial/Carp) 0.1 mg IV Q5M PRN PRN Reason: Oversedation/Resp depression Stop: 04/22/22 16:32 Ondansetron HCl (Ondansetron Inj 2 Mg/Ml 2 Ml Vial) 4 mg IV Q6H PRN PRN Reason: Nausea &/or Vomiting Stop: 04/22/22 16:32 Ondansetron HCl (Ondansetron 4 Mg Od Tab) 4 mg PO Q6H PRN PRN Reason: Nausea Stop: 04/22/22 16:32 Oxycodone HCl (Oxycodone Hcl Ir 5 Mg Tab (Immediate Release)) 5 - 10 mg PO Q4H PRN PRN Reason: Pain & Pre PT Stop: 04/06/22 16:32 Polyethylene Glycol (Polyethylene (Miralax) 17 Gm Pack) 17 gm PO Q6 DIANE Stop: 04/23/22 05:59 Last Admin: 03/24/22 05:28 Dose: 17 gm Senna/Docusate Sodium (Docusate Sodium/Senna 50/8.6mg Tab) 2 tab PO HS DIANE Stop: 04/22/22 20:59 Last Admin: 03/23/22 20:01 Dose: 2 tab Sodium Biphosphate/Sodium Phosphate (Sod Phosphate/Sod Biphosphate Enema 132 Ml Btl) 132 ml MA ONE PRN PRN Reason: Constipation Stop: 04/22/22 16:32 Tramadol HCl (Tramadol Hcl 50 Mg Tablet) 50 - 100 mg PO Q4H PRN PRN Reason: Moderate-Severe pain & Pre PT Stop: 04/22/22 16:32
--- NOTE | 2022-03-24 14:10 | XRay Report ---
XR lumbar spine 2-3V CLINICAL HISTORY: post op standing films TECHNIQUE: 3 views of the lumbar spine were obtained. Comparison: Comparison is made to fluoroscopy of the lumbar spine 03/23/2022 FINDINGS: Posterior fixation hardware is seen spanning the lumbosacral spine. Cement is noted under L2. Jazmin cheryl deformity of L2 is again seen. Degenerative changes are seen in the lumbar spine. The alignment is normal. IMPRESSION: Expected appearance of posterior fixation hardware. Compression deformity of L2 is unchanged from joes or exam. ACT 112: Negative or not required by law. Electronically signed by: Howard Rogers M.D. 03/24/2022 2:07 PM
[2022-03-24] MEDS: DOCUSATE SODIUM/SENNA 50/8.6MG TAB PO SCH (20:46)
[2022-03-24] MEDS: traMADol HCL 50 MG TABLET PO PRN (21:39)
[2022-03-25] MEDS: POLYETHYLENE (MIRALAX) 17 GM PACK PO SCH ×4 (06:01→23:35)
[2022-03-25] MEDS: traMADol HCL 50 MG TABLET PO PRN (06:04)
[2022-03-25] MEDS: GABAPENTIN 300 MG CAP PO SCH ×3 (08:46→21:35)
[2022-03-25] MEDS: INSULIN ASPART PER UNIT SC SCH ×3 (08:46→17:49)
[2022-03-25] MEDS: gemfibroziL 600 MG TAB PO SCH ×2 (08:47→21:35)
[2022-03-25] MEDS ORDERED: LANTUS PER UNIT CHARGE SQ SCH ×2 (09:00→21:00)
[2022-03-25 09:10] LABS: Basophils # (auto) 0.11 K/uL (0-0.2); Eosinophils # (auto) 0.49 K/uL (0-0.50); Eosinophils % (auto) 4.5 %; Hematocrit (blood only) 34.5 % (40.1-51.0); Hemoglobin 11.9 g/dl (14.0-18.0); Immature Granulocytes # (auto) 0.15 K/uL (0.00-0.02); Immature Granulocytes % (auto) 1.4 %; Lymphocytes # (auto) 2.64 K/uL (1.2-3.4); Lymphocytes % (auto) 24.2 %; Mean Corpuscular Hgb Conc 34.5 g/dL (32.0-36.0); Mean Corpuscular Volume 89.8 fL (80.0-100.0); Mean Platelet Volume 11.5 fL (9.4-12.4); Monocytes # (auto) 0.92 K/uL (0.24-0.82); Monocytes % (auto) 8.4 %; Neutrophils % (auto) 60.5 %; Platelet Count 132 K/uL (130-400); RDW Coefficient of Variation 12.2 % (11.5-14.5); RDW Standard Deviation 39.1 fL (36.4-46.3); Red Blood Count 3.84 M/uL (4.63-6.08); White Blood Count 10.91 K/ul (4.8-10.8)
--- NOTE | 2022-03-25 12:23 | Hospitalist Progress Note ---
Date of Service March 25, 2022 Assessment & Plan (1) Lumbar back pain with radiculopathy affecting left lower extremity: Plan: per Dr. Saucedo's notes with addendum: - POD#2 for lumbar decompression and fusion surgery - History of 2 prior lumbar surgeries - Increasing lumbar back pain with radiation to left groin and left leg with left leg paresthesias. - Hold home diclofenac, tramadol, hydrocodone - Acetaminophen, oxycodone, Dilaudid as needed pain - Bowel regimen - PT/OT -Management of anemia per below Acute blood loss anemia -Baseline hemoglobin 14 down to 9.9 Continue to monitor Transfuse if hemoglobin below 7 (2) Abnormal finding on EKG: Plan: - Preop EKG from 02/13/2022: Sinus rhythm, rate 91, borderline criteria for anterior lateral infarct. - Anesthesia had recommended cardiac clearance prior to undergoing surgery - EKG: Sinus rhythm, poor R wave progression - Patient denies any chest pain, shortness of breath, exertional chest pain or shortness of breath - Recently sedentary secondary to back pain, prior was able to walk 100 yards without shortness of breath or chest pain - Troponin negative - Echo wnl - Cardiology consult for assistance in pre-op cardiac evaluation - no additional testing, can proceed to surgery per Cardiology 03/25 -No cardiac symptoms (3) DM type 2 (diabetes mellitus, type 2): Plan: - A1c: 8% 02/2022 - Hold home glycemic agents - Basal bolus insulin per protocol BSG 103, 110 (4) HTN (hypertension): Plan: Blood pressure on the lower side Hold usual losartan and Lasix (5) HLD (hyperlipidemia): Plan: - Continue gemfibrozil (6) DELMY on CPAP: Plan: - Continue CPAP at bedtime (7) Lower extremity edema: Plan: - recent bilateral lower extremity edema from keep legs dependent - Patient denies known history of CHF - started on Lasix for LE edema as OP - hold Lasix - may not need Lasix going forward as this is likely not helping LE edema as his edema/swelling is likely from dependent legs as patient unable to lie in bed due to back pain 03/25 Patient on the dry side, blood pressure marginal Hold Lasix for today Reevaluate tomorrow Plan DVT Prophylaxis: SCDs Full Code Dispo: Telemetry Follows with Dr Jose Luis Hamilton in [place], [place] for routine care Admission and Anticipated Discharge Date Admission Date: March 22, 2022 Subjective Follow-up status post lumbar spine surgery, etc. Seen resting up in bedside chair Comfortable, not in distress States he feels fine overall Back pain well controlled Ambulating in the hallways with no problems No BM today, but no abdominal pain, nausea vomiting, positive flatus no chest pain, dyspnea, palpitations, dizziness No other symptoms Review of Systems Review of Systems: all noted and negative except for above Physical Exam Physical Exam: General- oriented x 3, not in distress, speaks in sentences with no effort or accessory muscle use Eyes- anicteric Neck- no JVD Lungs- clear breath sounds bilaterally, no rales/wheezes Heart- normal rate, regular rhythm; no murmurs Abdomen- normal bowel sounds, nondistended, soft, nontender Back-dressing in place, no bleeding or discharge DOUG drain in place: Scant serosanguineous output noted Extremities- no pretibial edema, no calf tenderness Neuro- alert, oriented x 3; no gross focal neurologic deficits Skin- warm & dry Results & Data Results & Data ([facility]) Vital Signs (Past 12 Hours) Vital Signs Temp Pulse Resp BP Pulse Ox O2 Del Method 03/25/22 07:49 36.7 C 88 16 113/68 96 Room Air 03/25/22 03:36 24 all noted and reviewed including below
--- NOTE | 2022-03-25 12:39 | Orthopedic Progress Note ---
Date of Service March 25, 2022 Assessment & Plan (1) Lumbar back pain with radiculopathy affecting left lower extremity: Plan: At this time we will continue physical therapy monitor his DOUG operatively discharge home next few days. Admission and Anticipated Discharge Date Admission Date: March 22, 2022 Subjective Patient's back pain is controlled leg symptoms improved Physical Exam Physical Exam: Patient is in the chair at the bedside. Is comfortable. Is eccentric to testing. Results & Data ([facility]) Vital Signs (Past 12 Hours) Vital Signs Temp Pulse Resp BP Pulse Ox O2 Del Method 03/25/22 07:49 36.7 C 88 16 113/68 96 Room Air 03/25/22 03:36 24
--- NOTE | 2022-03-25 13:10 | Cardiology Progress Note ---
Date of Service March 25, 2022 Assessment & Plan (1) Abnormal finding on EKG: (2) Encounter for pre-operative examination: (3) HTN (hypertension): (4) DELMY on CPAP: (5) Spinal stenosis, lumbar region with neurogenic claudication: Plan Patient is a 66-year-old male presents through ER evaluation for severe unrelenting back pain with ongoing issues 1. Severe spinal stenosis with neurogenic claudication status post prior surgical intervention 2. Morbid obesity 3. Type 2 diabetes mellitus 4. Obstructive sleep apnea with prescribed CPAP, not in use 5. Coronary angiography 07/18/2018 for abnormal EKG mild to moderate luminal irregularities without obstruction. Report on [facility] chart 08/19/2018 (outside information), date corrected in history 6. Abnormal EKG with poor R wave progression across the anterior leads Patient personally seen and examined. Patient has done well postoperatively but blood pressures trending somewhat low likely in relationship to pain medications reduction in pain Would continue to hold losartan with plans to resume on discharge possibly at lower dose depending on blood pressure response Admission and Anticipated Discharge Date Admission Date: March 22, 2022 Subjective Patient was seen and examined, chart, medications, telemetry reviewed. Back pain dramatically improved post surgery Blood pressures last evening were trending towards low and I held losartan this morning, usual dose 100 mg/day Physical Exam Constitutional: WD/WN, vitals as above + morbidly obese Eyes: PERRL, conjunctivae normal, anicteric sclerae ENMT: external ear and nose normal, oropharynx normal Neck: trachea midline, no thyromegaly Respiratory: normal respiratory effort, lungs clear to auscultation Cardiovascular: RRR, no murmur, no edema Vessels: no JVD Extremities: + edema (1-2+) Gastrointestinal (Abdomen): normal bowel sounds, soft, nontender, no hepatosplenomegaly Musculoskeletal: Head/Neck/Chest: + head abnormal to inspection, normocephalic and head atraumatic Results & Data ([facility]) Vital Signs (Past 12 Hours) Vital Signs Temp Pulse Resp BP Pulse Ox O2 Del Method 03/25/22 07:49 36.7 C 88 16 113/68 96 Room Air 03/25/22 03:36 24 Laboratory Results Laboratory Results - last 24 hr 03/24/22 03/24/22 03/25/22 16:20 20:25 08:21 WBC RBC Hgb Hct MCV MCH MCHC RDW Std Deviation RDW Coeff of Balwinder Plt Count MPV Immature Gran % (Auto) Neut % (Auto) Lymph % (Auto) [place] % (Auto) Eos % (Auto) Baso % (Auto) Neut # (Auto) Lymph # (Auto) [place] # (Auto) Eos # (Auto) Baso # (Auto) Immature Gran # (Auto) POC Glucose 127 H 188 H 103 H 03/25/22 03/25/22 08:47 12:17 WBC 10.91 H RBC 3.84 L Hgb 11.9 L Hct 34.5 L MCV 89.8 MCH 31.0 MCHC 34.5 RDW Std Deviation 39.1 RDW Coeff of Balwinder 12.2 Plt Count 132 MPV 11.5 Immature Gran % (Auto) 1.4 Neut % (Auto) 60.5 Lymph % (Auto) 24.2 [place] % (Auto) 8.4 Eos % (Auto) 4.5 Baso % (Auto) 1.0 Neut # (Auto) 6.60 H Lymph # (Auto) 2.64 [place] # (Auto) 0.92 H Eos # (Auto) 0.49 Baso # (Auto) 0.11 Immature Gran # (Auto) 0.15 H POC Glucose 110 H
[2022-03-25] MEDS ORDERED: LOSARTAN POTASSIUM 50 MG TAB PO SCH (13:15)
[2022-03-25] MEDS: MAGNESIUM HYDROXIDE SUSP 30 ML UDC PO PRN (18:08)
[2022-03-25] MEDS: oxyCODONE HCL IR 5 MG TAB (IMMEDIATE RELEASE) PO PRN (18:11)
[2022-03-25] MEDS: DOCUSATE SODIUM/SENNA 50/8.6MG TAB PO SCH (21:35)
[2022-03-26] MEDS ORDERED: INSULIN ASPART PER UNIT SC ONE (02:00)
[2022-03-26] MEDS: INSULIN ASPART PER UNIT SC SCH ×5 (02:07→20:34)
[2022-03-26] MEDS: POLYETHYLENE (MIRALAX) 17 GM PACK PO SCH ×2 (06:37→12:52)
[2022-03-26] MEDS: MAGNESIUM HYDROXIDE SUSP 30 ML UDC PO PRN (07:49)
[2022-03-26] MEDS: gemfibroziL 600 MG TAB PO SCH ×2 (07:50→20:26)
[2022-03-26] MEDS: GABAPENTIN 300 MG CAP PO SCH ×3 (07:50→20:26)
--- NOTE | 2022-03-26 08:24 | Orthopedic Progress Note ---
Date of Service March 26, 2022 Assessment & Plan (1) Lumbar back pain with radiculopathy affecting left lower extremity: Plan: At this time we will continue physical therapy monitor his DOUG output anticipate discharge home tomorrow. Admission and Anticipated Discharge Date Admission Date: March 22, 2022 Subjective Patient's back pain is controlled leg symptoms markedly improved Physical Exam Physical Exam: Patient insurance appears constricted testing. Results & Data ([facility]) Vital Signs (Past 12 Hours) Vital Signs Temp Pulse Pulse Resp BP Pulse Ox O2 Del Method 03/26/22 02:16 80 21 03/25/22 22:04 81 31 H 92 03/25/22 21:55 36.4 C L 86 20 118/72 95 Room Air FiO2 03/26/22 02:16 21 03/25/22 22:04 21 03/25/22 21:55
[2022-03-26 08:42] LABS: Basophils % (auto) 1.2 %; Eosinophils % (auto) 5.8 %; Hematocrit (blood only) 31.4 % (40.1-51.0); Hemoglobin 10.8 g/dl (14.0-18.0); Immature Granulocytes # (auto) 0.12 K/uL (0.00-0.02); Immature Granulocytes % (auto) 1.4 %; Lymphocytes # (auto) 2.12 K/uL (1.2-3.4); Lymphocytes % (auto) 24.7 %; Mean Corpuscular Hemoglobin 30.8 pg (25.0-34.0); Mean Corpuscular Hgb Conc 34.4 g/dL (32.0-36.0); Mean Corpuscular Volume 89.5 fL (80.0-100.0); Monocytes # (auto) 0.77 K/uL (0.24-0.82); Neutrophils # (auto) 4.99 K/uL (1.4-6.5); Neutrophils % (auto) 57.9 %; Platelet Count 195 K/uL (130-400); RDW Coefficient of Variation 12.2 % (11.5-14.5); RDW Standard Deviation 38.6 fL (36.4-46.3); Red Blood Count 3.51 M/uL (4.63-6.08)
--- NOTE | 2022-03-26 08:45 | Pharmacy Report ---
Pharmacy Glycemic Short Note 2 - Date of Service March 26, 2022 - Glycemic Short BSG Results (Last 24 hours): 03/25/22 03/25/22 03/25/22 12:17 16:56 20:27 POC Glucose 110 H 126 H 66 L* 03/25/22 03/26/22 03/26/22 20:28 01:49 08:08 POC Glucose 81 120 H 138 H OUTPATIENT ANTIDIABETIC REGIMEN: * Metformin 1000 mg PO BIDM * Glimepiride 4 mg PO BIDM * Jardiance 25 mg PO AM * Ozempic 0.5 mg SC every Wednesday * HbA1c = 8.0% (03/22/22) ASSESSMENT: 03/26/22: * BSGs tightly controlled yesterday, ranging 66-126 mg/dL * Will loosen Novolog parameters today * Received 15 units of basal and 18 units of prandial/correctional bolus * Fasting BSG increased from 103 -> 138 mg/dL, will increase basal by 20% today * Anticipating discharge tomorrow 03/24/22: * POD #1 s/p L2-L4 decompression fusion * Received 8 mg IV dexamethasone in OR, no steroids ongoing * BSGs elevated postoperatively, 174 and 249 mg/dL with fasting BSG of 140 mg/dL this morning * Will keep tight Novolog coverage this morning and loosen at lunchtime 03/23/22: * 66 yo M admitted last evening secondary to preoperative clearance by cardiology prior to surgery with Dr. Gay today. History of T2DM managed without insulin at home, just orals. A1c is elevated given age and comorbidities. Currently NPO for surgery today. * BSG upon arrival to floor last evening was 229 mg/dL. Given 12 units of Novolog with meal, and BSG dropped to 116 mg/dL at bedtime. * Will loosen Novolog parameters today. * Fasting BSG still elevated at 178 mg/dL this AM. * Will increase basal scale slightly despite patient being NPO. Basal insulin does not peak and this should control BSG throughout surgery until he is able to eat postoperatively. * May need to back off basal insulin this evening pending BSGs. PLAN FOR INPATIENT GLYCEMIC CONTROL: * Hold outpatient oral diabetes medications * Basal insulin - increase by 20% * Lantus 18 units SC qAM * Bolus insulin - loosen * NovoLog per scale ACHS or Q6hrs while NPO * Goal Range: Low 110 mg/dL - High 140 mg/dL * Correction Factor: 25 mg/dL/unit * Nutritional / Prandial insulin per carb ratio of 1 unit per 8 grams CHO consumed
[2022-03-26 09:07] LABS: BUN Creatinine Ratio 24.7 (10-20); Calcium 9.2 mg/dl (8.5-10.1); Creatinine Clr Calc Pharmacy 128.3 ml/min; Est GFR (Non-African American) 96.7 ml/min; Potassium 4.1 mmol/L (3.5-5.1)
[2022-03-26] MEDS: LANTUS PER UNIT CHARGE SQ SCH (10:22)
--- NOTE | 2022-03-26 15:30 | Hospitalist Progress Note ---
Date of Service March 26, 2022 Assessment & Plan (1) Lumbar back pain with radiculopathy affecting left lower extremity: Plan: POD#3 for lumbar decompression and fusion surgery - History of 2 prior lumbar surgeries - Increasing lumbar back pain with radiation to left groin and left leg with left leg paresthesias - Hold home diclofenac, tramadol, hydrocodone - Acetaminophen, oxycodone, Dilaudid as needed pain - Bowel regimen - PT/OT -Management of anemia per below Acute blood loss anemia -Baseline hemoglobin 14 down to 9.9 -> 10.8 Continue to monitor Transfuse if hemoglobin below (2) Abnormal finding on EKG: Plan: - Preop EKG from 02/13/2022: Sinus rhythm, rate 91, borderline criteria for anterior lateral infarct. - Anesthesia had recommended cardiac clearance prior to undergoing surgery - EKG: Sinus rhythm, poor R wave progression - Patient denies any chest pain, shortness of breath, exertional chest pain or shortness of breath - Recently sedentary secondary to back pain, prior was able to walk 100 yards without shortness of breath or chest pain - Troponin negative - Echo wnl - Cardiology consult for assistance in pre-op cardiac evaluation - no additional testing, can proceed to surgery per Cardiology (3) DM type 2 (diabetes mellitus, type 2): Plan: - A1c: 8% 02/2022 - Hold home glycemic agents - Basal bolus insulin per protocol (4) HTN (hypertension): Plan: Blood pressure on the lower side Hold usual losartan and Lasix Appreciate recommendations from Dr. Spears regarding BP (5) HLD (hyperlipidemia): Plan: Continue gemfibrozil (6) DELMY on CPAP: Plan: Continue CPAP at bedtime (7) Lower extremity edema: Plan: Recent bilateral lower extremity edema from keep legs dependent Patient denies known history of CHF Started on Lasix for LE edema as OP Hold Lasix - may not need Lasix going forward as this is likely not helping LE edema as his edema/swelling is likely from dependent legs as patient unable to lie in bed due to back pain Continue to hold lasix given euvolemic status, borderline low BP. Re-evaluate tomorrow Plan DVT Prophylaxis: SCDs Full Code Dispo: Telemetry Possible discharge tomorrow PM by primary service Follows with Dr Jose Luis Hamilton in [place], [place] for routine care Admission and Anticipated Discharge Date Admission Date: March 22, 2022 Supervising Physician Co-Signing Physician Notes delayed entry date of service noted above Attending Addendum: care coordinated with SHAMIKA Mason please refer to her notes for full details, I agree with her notes patient seen and examined, records reviewed by myself as well diagnoses and plan of care as per SHAMIKA Mason's notes Saul Persaud MD Subjective Seen in 314 and follow-up status post lumbar surgery. Patient is resting comfortably in bedside chair awaiting visit from his son. Feeling well overall with back pain well controlled. Ambulating the hallways and participating in therapy without issue. Had a bowel movement earlier today. No fever, chills, lightheadedness, chest pain, shortness of breath, nausea, vomiting, abdominal pain, dysuria, diarrhea or constipation. Review of Systems Review of Systems: At least ten systems reviewed and negative except as noted in the HPI. Physical Exam Physical Exam: Gen: WD/WN, NAD, sitting in bedside chair, A&Ox3, obese HEENT: Normocephalic, atraumatic, conjunctivae moist, sclerae anicteric, mucous membranes moist Lung: Clear to Auscultation bilaterally, no wheezes/rales/rhonchi Heart: Regular rate, regular rhythm, no murmurs, rubs, or gallops Abdomen: Soft, NT, ND +BS x 4 Extremities: + Spinal dressing clean, dry, intact. DOUG drain visualized. No edema Skin: Warm, no rash Results & Data Results & Data ([facility]) Vital Signs (Past 12 Hours) Vital Signs Temp Pulse Resp BP Pulse Ox O2 Del Method 03/26/22 11:02 36.4 C L 86 16 98/64 L 96 Room Air 03/26/22 08:24 37.6 C H 82 18 112/75 94 Room Air Laboratory Results Short CBC 03/26/22 Range/Units 08:15 WBC 8.60 (4.8-10.8) K/ul Hgb 10.8 L (14.0-18.0) g/dl Hct 31.4 L (40.1-51.0) % Plt Count 195 (130-400) K/uL BMP 03/26/22 08:15 Sodium 137 Potassium 4.1 Chloride 104 Carbon Dioxide 25 BUN 18 Creatinine 0.73 Glucose 113 H Calcium 9.2 Diagnostic Findings Lumbar Spine X-Ray 03/23/22 11:30 FL lumbar spine 2-3V CLINICAL HISTORY: L2-4 DFI TECHNIQUE: 4 views were obtained with the C-arm in the OR with the above procedure. Total fluoroscopy time was 48 seconds. Comparison: Comparison is made to fluoroscopy of the lumbar spine 08/24/2018 FINDINGS/IMPRESSION: Intraoperative images were obtained of L2-L4 decompression and fusion. Cement insertion is noted. Please correlate with intraoperative fluoroscopy and operative report. ACT 112: Negative or not required by law. Electronically signed by: Howard Rogers M.D. 03/23/2022 2:42 PM Lumbar Spine X-Ray 03/24/22 11:10 XR lumbar spine 2-3V CLINICAL HISTORY: post op standing films TECHNIQUE: 3 views of the lumbar spine were obtained. Comparison: Comparison is made to fluoroscopy of the lumbar spine 03/23/2022 FINDINGS: Posterior fixation hardware is seen spanning the lumbosacral spine. Cement is noted under L2. Compression deformity of L2 is again seen. Degenerative changes are seen in the lumbar spine. The alignment is normal. IMPRESSION: Expected appearance of posterior fixation hardware. Compression deformity of L2 is unchanged from prior exam. ACT 112: Negative or not required by law. Electronically signed by: Howard Rogers M.D. 03/24/2022 2:07 PM
[2022-03-26] MEDS: oxyCODONE HCL IR 5 MG TAB (IMMEDIATE RELEASE) PO PRN (18:02)
[2022-03-26] MEDS: DOCUSATE SODIUM/SENNA 50/8.6MG TAB PO SCH (20:26)
[2022-03-27] MEDS: gemfibroziL 600 MG TAB PO SCH (07:52)
[2022-03-27] MEDS: GABAPENTIN 300 MG CAP PO SCH (07:53)
[2022-03-27] MEDS: INSULIN ASPART PER UNIT SC SCH (08:55)
[2022-03-27] MEDS: LANTUS PER UNIT CHARGE SQ SCH (08:57)
--- NOTE | 2022-03-27 10:25 | Discharge Summary ---
Date of Service March 27, 2022 Admission HPI Per Admitting Provider This is a 66-year-old male well-known to me the presents with chronic persistent back and right leg pain. After failing extensive course of nonoperative care is here for surgical invention. Principal Diagnosis Lumbar spinal stenosis with neurogenic claudication Discharge Data Allergies Allergy/AdvReac Type Severity Reaction Status Date / Time No Known Allergies Allergy Verified 08/24/18 10:40 Consultations 03/22/22 10:34 ED Decision to Admit Stat 03/22/22 14:14 Consult Cardiology Routine 03/23/22 08:00 Consult Orthopedic Surgery Routine Procedures Performed Operation Date: 03/23/22 09:40 Actual Procedures p L2-L4 Decompression Fusion, (Not Applicable) - Serge Gay DO s L1-L2 and L4-S1 Hardware Removal(Not Applicable) - Serge Gay DO Ordered Studies 03/23/22 11:30 FL lumbar spine 2-3V Routine Hospital Course (1) Lumbar back pain with radiculopathy affecting left lower extremity: Patient with lumbar decompression fusion tolerated so was taken to orthopedic floor postoperatively postop day #1 is up and ambulating breast postop day 2 on postop day 3 pain was controlled DOUG drain decreased probably. Socially discharged home. Discharge orders instructions from the chart for further view. Total Time Total Time Spent Total Time Spent (In Minutes): 20 minutes Discharge Plan Discharge Items Patient Disposition: Home - Self-Care Reason For Visit: BACK PAIN, ABNORMAL EKG Discharge Diagnosis: Lumbar spinal stenosis with neurogenic claudication Activity: As commented below Non-emergency contact: Primary Care Provider Call non-emergency contact if: you have any medication questions Follow-up/Referrals: Jose Luis Busby MD [Primary Care Provider] - 04/03/22 10:40 am Diet: Regular Addtl Attending Provider Instructions: ACTIVITY RECOMMENDATIONS: SELF CARE INSTRUCTIONS AFTER THORACIC/LUMBAR FUSIONS 1. You may walk to your tolerance. It is good exercise for your legs and back. Expect some back and intermittent leg aches and pains. 2. You may perform "counter-top" level activities (make a sandwich, steven with a project, etc.). 3. No bending or lifting of more than 10 pounds or back twisting of any nature (roll like a log when turning in bed). 4. You may ride in a car for 20-30 minutes at a time. No driving until after your first visit with your doctor. 5. Frequent changes of position and restricting sitting to 30 minutes at a time will help limit the amount of back spasms and stiffness you may experience. 6. You may discontinue the use of ambulatory aids (cane, crutches, etc.) once your strength and confidence allow. 7. You may cloth napping supervisor the shower and let water strike your incision when you arrive home at least once daily. Do not take a tub bath, sit in a hot tub or go into a swimming pool until after your first recheck in the office. SPECIAL CARE INSTRUCTIONS: VERY IMPORTANT TO READ AND REVIEW A. Your surgical incision has been closed with a cosmetic suture under the skin that will dissolve in about 6 weeks. In 14 days, you can use a pair of clean scissors and cut the suture that is left outside of the skin at the ends of your incision. 1. The small skin tapes can be removed 7 days after surgery if they have not fallen off by that point. 2. You may keep the wound open to air as much as possible to promote healing after post-op day number 5 unless told otherwise by your doctor. 3. If you think the wound looks like it is becoming infected (redness or worsening drainage) and/or you are experiencing fever, chill or worsening back pain and muscle spasms, contact the office so that we may evaluate you as soon as possible. B. Complications are uncommon, but please contact us if you have any signs or symptoms of: 1. wound infection (fever higher than 102.5 degrees F, redness, separation of wound, drainage, or increasing pain from the incision) 2. blood clots in legs (pain, swelling, redness and warmth in legs) 3. urinary tract infection (fever higher than 102.5 degrees F, burning upon urination or increased frequency of urination) 4. nerve problems (inability to walk on your toes or heels, numbness, loss of bowel or bladder control) 5. any other symptoms that concern you C. Please call the office at if you have any concerns or questions about your operation or recovery. D. No smoking! Smoking drastically decreases the chance of a solid fusion. E. Do not take any anti-inflammatory medications (Indocin, Advil, Motrin, Aspirin, Naprosyn, etc.) as these may inhibit the chance of a solid fusion. Tylenol is okay to take for pain. MANAGING PAIN AFTER SPINAL SURGERY 1. Narcotic medication is intended for short-term use and will be provided for surgical pain. Surgical pain usually lasts for a period of 4-6 weeks. Narcotic medication includes Percocet, Vicodin, Darvocet, Tylenol #3 or Lortab. 2. Longer-term pain is more appropriately treated with non-narcotic medication such as Tylenol ES. 3. Muscle spasm is not appropriately treated with narcotics. Muscle relaxers such as Soma, Flexeril or Skelaxin can be used along with Tylenol ES. 4. Remember that we all live with some "aches and pains". This is not unusual or uncommon after an injury or as we get older. a. Back pain is expected and may include muscle spasms for 4 to 6 weeks after surgery. The pain should gradually improve. If the pain worsens for no apparent reason, please contact the office. b. Intermittent leg pain may also be experienced and should not be concerned about unless it worsens for no apparent reason. If so, please contact the office. 5. We will provide appropriate medication within the normal guidelines of their prescribed use. We will also be very cautious and aware of potential abuse and extended duration of patients' medication needs. a. Pain medications are for your comfort and to assist with sleep and rest so that the tissue can heal. They are not provided in order to return to normal activity and should not be used through the day. To do so or worsening pain at night can result from ongoing tissue damage and development of tolerance to the prescribed medicine. 6. Please allow 2-3 days to process refills. Prescriptions will not be mailed but must be picked up at the office. FOLLOW UP VISIT: Keep your scheduled follow-up appointment. Any questions, please call the office at . Pending Studies at Discharge: No Stand-Alone Forms: My [employer], Smoking Cessation Medications and ID Order Prescriptions: New tramadol 50 mg tablet 50 mg PO Q6H PRN (Reason: pain, moderate) Qty: 30 0RF oxycodone 5 mg tablet 5 mg PO Q6H PRN (Reason: pain, severe) Qty: 30 0RF Continued potassium chloride 10 mEq Capsule, Extended Release 10 meq PO BID glimepiride 2 mg Tablet 4 mg PO BID metformin 1,000 mg Tablet 1,000 mg PO BID furosemide 40 mg Tablet 40 mg PO QAM Jardiance 25 mg Tablet 25 mg PO QAM Ozempic 0.25 mg or 0.5 mg(2 mg/1.5 mL) Pen Injector 0.5 mg subcut WK Rx Instructions: Sundays tramadol 50 mg Tablet 50 mg PO Q4H PRN (Reason: Pain, Moderate) Qty: 30 0RF gemfibrozil 600 mg tablet 600 mg PO BID hydrocodone-acetaminophen 7.5-325 mg tablet 1 tab PO Q6 PRN (Reason: Severe Pain (Scale Score 7-10)) gabapentin 300 mg capsule 300 mg PO TID losartan 100 mg tablet 100 mg PO DAILY Discontinued diclofenac sodium 75 mg tablet,delayed release (DR/EC) 75 mg PO BID Discharge Orders: Discharge Order (Routine); Ordered 03/27/22 Ordered By: Serge Gay Admission Data Admit Date/Time: 03/22/22 11:26 Attending Provider: Saul Persaud Admit Provider: Ross Waggoner Primary Care Provider: Jose Luis Busby Other Providers: Ross Waggoner ; Ever Spears ; Serge Gay ; Crystal Mason
--- NOTE | 2022-03-27 12:01 | Hospitalist Progress Note ---
Date of Service March 27, 2022 Assessment & Plan (1) Lumbar back pain with radiculopathy affecting left lower extremity: Plan: POD#4 for lumbar decompression and fusion surgery - History of 2 prior lumbar surgeries - Increasing lumbar back pain with radiation to left groin and left leg with left leg paresthesias - Hold home diclofenac, tramadol, hydrocodone - Acetaminophen, oxycodone, Dilaudid as needed pain - Bowel regimen - PT/OT - Management of anemia per below Acute blood loss anemia Baseline hemoglobin 14 down to 9.9 -> stable at 10.8 Continue to monitor Transfuse if hemoglobin below (2) Abnormal finding on EKG: Plan: - Preop EKG from 02/13/2022: Sinus rhythm, rate 91, borderline criteria for anterior lateral infarct. - Anesthesia had recommended cardiac clearance prior to undergoing surgery - EKG: Sinus rhythm, poor R wave progression - Patient denies any chest pain, shortness of breath, exertional chest pain or shortness of breath - Recently sedentary secondary to back pain, prior was able to walk 100 yards without shortness of breath or chest pain - Troponin negative - Echo wnl - Cardiology consult for assistance in pre-op cardiac evaluation - no additional testing, can proceed to surgery per Cardiology (3) DM type 2 (diabetes mellitus, type 2): Plan: - A1c: 8% 02/2022 - Hold home glycemic agents - Basal bolus insulin per protocol (4) HTN (hypertension): Plan: Resume lasix and losartan at discharge. Pain controlled, BP 131/82. Follow up closely with PCP (5) HLD (hyperlipidemia): Plan: Continue gemfibrozil (6) DELMY on CPAP: Plan: Continue CPAP at bedtime (7) Lower extremity edema: Plan: Recent bilateral lower extremity edema from keep legs dependent Resumed lasix this morning Plan DVT Prophylaxis: SCDs Full Code Dispo: Telemetry Discharged today Follows with Dr Jose Luis Hamilton in [place] for routine care Admission and Anticipated Discharge Date Admission Date: March 22, 2022 Supervising Physician Co-Signing Physician Notes delayed entry date of service noted above Attending Addendum: care coordinated with SHAMIKA Mason please refer to her notes for full details, I agree with her notes patient seen and examined, records reviewed by myself as well diagnoses and plan of care as per SHAMIKA Mason's notes Saul Persaud MD Subjective Seen in 314 and follow-up status post lumbar surgery. Patient is resting comfortably in bedside chair. Feeling well overall with back pain well controlled. Ambulating the hallways and participating in therapy without issue. No fever, chills, lightheadedness, chest pain, shortness of breath, nausea, vomiting, abdominal pain, dysuria, diarrhea or constipation. Ready to go home. Review of Systems Review of Systems: At least ten systems reviewed and negative except as noted in the HPI. Physical Exam Physical Exam: Gen: WD/WN, NAD, sitting in bedside chair, A&Ox3, obese HEENT: Normocephalic, atraumatic, conjunctivae moist, sclerae anicteric, mucous membranes moist Lung: Clear to Auscultation bilaterally, no wheezes/rales/rhonchi Heart: Regular rate, regular rhythm, no murmurs, rubs, or gallops Abdomen: Soft, NT, ND +BS x 4 Extremities: + Spinal dressing clean, dry, intact. DOUG drain visualized. No edema Skin: Warm, no rash Results & Data Results & Data ([facility]) Vital Signs (Past 12 Hours) Vital Signs Temp Pulse Pulse Resp BP Pulse Ox O2 Del Method 03/27/22 11:44 36.4 C L 96 H 78 18 131/82 97 03/27/22 07:39 36.4 C L 78 18 131/82 97 Room Air 03/27/22 03:56 24 FiO2 03/27/22 11:44 03/27/22 07:39 03/27/22 03:56 21
[2022-03-27] MEDS ORDERED: FUROSEMIDE 40 MG TAB PO SCH (12:30)
== END 2022-03-27 12:47 | disposition home health service (06) | DRG 454 ==
LOC: ED 08:58 → SUATTDRO 11:26 → 2N 11:26 → 3E 03-23 16:14